=== PATIENT | female | born 1945 | race Caucasian/White ===

== ENCOUNTER 2020-12-02 09:54 | Inpatient (IN) | payer MEDICARE, SELFPAY ==
[2020-12-02] VITALS (8 sets, daily range): BP systolic 124–162; BP diastolic 47–83; PULSE 70–81; RESP 16–20; TEMP 36–36.1; O2SAT 83–97; BMI 19.8
--- NOTE | ~2020-12-02 | XR_ITS ---
EXAMINATION: XR hip LT 2V w AP pelvis EXAM DATE: 12/02/2020 10:14 INDICATION: fall with shortening and rotation. TECHNIQUE: Left hip frontal, crosstable lateral projections for interpretation. Frontal projection pe lvis. There is no prior study for comparison. FINDINGS: There is acute closed posttraumatic left hip intertrochanteric fracture with medial angulat ion and probably mild comminution. No hip dislocation. Scattered arteriosclerotic disease. IMPRESSION: Left hip acute intertrochanteric fracture. Reviewed, dictated and finalized at location A.
--- NOTE | ~2020-12-02 | CT_ITS ---
EXAMINATION: CT brain wo con EXAM DATE: 12/02/2020 11:05 INDICATION: head injury, fall . TECHNIQUE: Spiral CT of the head was performed without contrast. Axial, coronal and sagittal images were reviewed. The dose-length product (DLP) for this examination was 605.33 mGy-cm. The exposure w as tailored according to patient size, and iterative reconstruction (ASIR) was used as additional dos e reduction technique. Comparison is made to prior examination from 02/20/2011. FINDINGS: There is no acute intraparenchymal hemorrhage. No evidence of intraparenchymal brain mass lesion. No evidence of acute infarction. Please note that initial head CT has limited sensitivity f or small or acute infarctions. Punctate old right thalamic lacunar infarction. There is mild to mod erate periventricular and subcortical hypodensity, nonspecific but probably related to small vessel i schemic disease. There is moderate prominence of the sulci and ventricles related to cerebral atrop hy. There is intracranial carotid arteriosclerosis. There are no extra-axial collections. There i s no mass effect or midline shift. The orbits are unremarkable. Soft tissue is unremarkable. The v isualized sinuses and mastoid air cells are well aerated. IMPRESSION: 1. No acute intracranial findings. 2. Chronic age related findings. 3. Punctate old left thalamic lacunar infarction. Reviewed, dictated and finalized at location A.
--- NOTE | ~2020-12-02 | XR_ITS ---
EXAMINATION: XR chest 2V DATE: 12/02/2020 11:09 INDICATION: Fall. Smoker. TECHNIQUE: Frontal and lateral views of the chest were obtained. COMPARISON: Chest single view 03/04/2019, chest CT 07/23/2018 FINDINGS: The lungs are hyperexpanded with lucencies, consistent with emphysema. No pleural effusion or pneumothorax. The heart size is normal. Again seen is a fusiform aneurysm of descending thoracic a salvatore measuring approximately 4.5 cm. IMPRESSION: 1. Emphysema. 2. Fusiform aneurysm of descending thoracic aorta measuring approximately 4.5 cm. Reviewed, dictated and finalized at location A. IMPRESSION: 1. Emphysema. 2. Fusiform aneurysm of descending thoracic aorta measuring approximately 4.5 c m.
--- NOTE | ~2020-12-02 | XR_ITS ---
XR surgery orthopedic DATE: 12/03/2020 10:12 INDICATION: ORIF left intertrochanteric hip fracture TECHNIQUE: 139.2 seconds fluoroscopy time 24.88 mGy COMPARISON: 12/02/2020 pelvis and left hip FINDINGS: A gamma nail extends through the greater trochanter into the proximal femoral shaft, with i nterlocking compression screw extending through the intertrochanteric area and femoral neck into the femoral head, providing near-anatomic position and alignment at the interventricular fracture of the left hip, with reduction of preoperative varus angulation. IMPRESSION: ORIF left intertrochanteric hip fracture by gamma nail and compression screw Reviewed, dictated and finalized at Location A. Reviewed, dictated and finalized at location A. IMPRESSION: ORIF left intertrochanteric hip fracture by gamma nail and compress ion screw
--- NOTE | 2020-12-02 10:26 | ED.LOWEXIN ---
HPI - Extremity Injury (Lower) General Chief Complaint: Extremity Injury, Lower Stated Complaint: fall - Left hip injury Time Seen by Provider: 12/02/20 10:11 Source: patient Mode of arrival: EMS Limitations: no limitations History of Present Illness HPI Narrative: This is a 75 year old female that presents to the ER after a ground level fall today via EMS. Reports she was walking out of her room and lost her balance. Reports she fell onto her left hip. She thinks she might have hit her head. She denies any loss of consciousness. Denies prodromal symptoms, other injuries, chest pain, shortness of breath, vision changes, vomiting, numbness or weakness. Related Data Home Medications Medication Instructions Recorded Confirmed aspirin 81 mg tablet,delayed 81 mg PO DAILY 02/27/19 03/28/20 release tiotropium bromide [Spiriva with 1 cap INHALATION DAILY 12/02/20 HandiHaler] Allergies Allergy/AdvReac Type Severity Reaction Status Date / Time No Known Allergies Allergy Verified 12/02/20 10:01 Review of Systems Review of Systems: CONSTITUTIONAL: Denies fever EYES: Denies visual changes CARDIOVASCULAR: Denies chest pain RESPIRATORY: Denies dyspnea. GASTROINTESTINAL: Denies vomiting MUSCULOSKELETAL: Reports joint pain, and myalgia. NEUROLOGIC: Denies headache, numbness, or weakness. All systems reviewed & are unremarkable except as noted in HPI and below PMFSH Past Medical History Medical History Abdominal aortic aneurysm Bilateral cataracts CAD (coronary artery disease) 3 cardiac stents COPD (chronic obstructive pulmonary disease) Hyperinflation on chest x-ray. No PFTs to confirm Glaucoma History of stroke 2013 Hyperlipidemia Hypertension Thoracic aortic aneurysm Being monitored every 4 months by ultrasound. She believes is 4 mm TIA (transient ischemic attack) Tobacco use Currently smokes a pack cigarettes a day. No interest in smoking cessation Vitamin D deficiency Surgical History Surgical History H/O section 1970's, 1979's History of coronary artery stent placement (~2013) Three stents Family History Family History Mother Family history of heart disease in male family member before age 55 Acute myocardial infarction Family history of obesity Family history of arthritis Family history of cardiovascular disease Hypertension Diabetes mellitus Sibling Family history of malignant neoplasm Family history of obesity Family history of arthritis due to sepsis Father Family history of malignant neoplasm Family history of arthritis Sibling Cerebrovascular accident Family history of arthritis Family history of cardiovascular disease Sibling Family history of arthritis Sibling Family history of malignant neoplasm of breast Social History Social History Social History: The patient lives with her son and [id number]. She gave this 6 children only 5 her living. Patient is still smoking a pack cigarettes a day. She denies any alcohol or illicit drugs. 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
--- NOTE | 2020-12-02 10:31 | ECG_ITS ---
Measurements Intervals [place] Rate: 64 P: 64 ME: 173 QRS: 6 QRSD: 90 T: 41 QT: 418 QTc: 432 Interpretive Statements SINUS RHYTHM MINIMAL Q WAVES- HIGH LATERAL LEADS BORDERLINE ST ABNORMALITY- ANTEROLAT/INF LEADS BASELINE ARTIFACT- I, II, AVR, AVL, AVF, V1, V3-V6 BORDERLINE ECG Electronically Signed On 12-02-2020 12:05:56 CDT by Leo Correia D.O.
[2020-12-02] MEDS: ONDANSETRON INJ 4 MG/2 ML VIAL IV PUSH (10:45)
[2020-12-02] MEDS: MORPHINE SULFATE (*CRX) 4 MG/ML INJ IV PUSH (10:46)
[2020-12-02 11:24] LABS: Basophils Absolute Auto 0.1 K/mm3 (0.0-0.1); Basophils Percent Auto 0.5 % (0.2-1.2); Eosinophils Percent Auto 0.2 % (0-4.4); Hematocrit 43.8 % (37.0-47.0); Hemoglobin 14.8 g/dL (12.0-15.0); Immature Granulocyte Absolute 0.12 K/mm3 (0.00-0.031); Immature Granulocyte Percent A 0.6 % (0-0.5); Lymphocytes Absolute Auto 1.07 K/mm3 (0.9-3.2); Lymphocytes Percent Auto 5.7 % (18.3-44.2); Mean Corpuscular HGB Conc 33.8 g/dl (32-36); Mean Corpuscular Hemoglobin 28.5 pg (26-34); Mean Corpuscular Volume 84.2 fl (80-100); Mean Platelet Volume 9.6 fl (7.4-10.4); Monocytes Absolute Auto 0.6 K/mm3 (0.1-0.6); Monocytes Percent Auto 3.4 % (2.6-8.5); Neutrophils Absolute Auto 16.7 K/mm3 (1.3-6.7); Neutrophils Percent Auto 89.6 % (45.5-73.1); Platelet Count Result 311 k/mm3 (150-375); Red Cell Distribution Width 14.9 % (11.5-14.5); White Blood Count 18.7 K/mm3 (4.5-10.0)
[2020-12-02 11:35] LABS: INR 0.9; Prothrombin Time 12.3 Seconds (11.1-14.7)
[2020-12-02 11:36] LABS: Alanine Aminotransferase 17 U/L (4-35); Albumin Level 3.7 g/dL (3.5-5.1); Alkaline Phosphatase 69 U/L (38-126); Anion Gap 9 mmol/L (8-16); Aspartate Amino Transferase 28 U/L (14-36); Bilirubin,Total 0.4 mg/dL (0.2-1.3); Blood Urea Nitrogen 15 mg/dL (7-17); Calcium 10.5 mg/dL (8.4-10.2); Carbon Dioxide 24 mmol/L (22-30); Chloride 89 mmol/L (98-107); Estimated CRCL calculation 40 ml/min; Estimated Glomerular Filt Rate > 60; Glucose 120 mg/dL (65-110); Potassium 3.2 mmol/L (3.4-5.0); Sodium 122 mmol/L (137-145)
[2020-12-02 11:37] LABS: Partial Thromboplastin Time 24.9 SECONDS (22.3-36.8)
[2020-12-02] MEDS: SODIUM CHLORIDE 0.9% IV 500 ML 999 ML IV CONT (12:05)
[2020-12-02 12:25] LABS: Add Urine Microscopic? YES; Appearance Urine Clear (Clear); Bilirubin Urine Negative (Negative); Blood Urine Negative (Negative); Color Urine Yellow (Yellow); Glucose Urine UA Negative (Negative); Ketones Urine Negative (Negative); Leukocyte Esterase Ur Negative LEU/UL (Negative); Nitrate Urine Negative (Negative); Protein Urine 1+ mg/dL (Negative); RBC Urine 0-2 /hpf (0-2); Specific Grav Ur 1.011 (1.001-1.035); Urobilinogen Urine Negative mg/dL (<2.0); WBC Urine 0-3 /hpf
--- NOTE | 2020-12-02 12:25 | PM.CNOR ---
Assessment and Plan Additional Plan 75 YO FEMALE WITH HISTORY OF FALL TO LEFT HIP NOW WITH DISPLACED LEFT INTERTROCHANTERIC FEMUR FRACTURE. HISTORY, EXAM AND RADIOGRAPHS REVIEWED WITH THE PATIENT. REFERRING PHYSICIAN RECORDS AND IMAGES REVIEWED. CONDITION, NATURE, ETIOLOGY AND COURSE OF NATURAL HISTORY REVIEWED. CONSERVATIVE AND OPERATIVE TREATMENT OPTIONS REVIEWED WELL THE RISKS AND BENEFITS OF EACH. XRAYS SHOW LEFT INTERTROCHANTERIC FEMUR FRACTURE WITH DISPLACEMENT. RECOMMEND INSERTION OF GAMMA KATHLEEN LEFT FEMUR. DISCUSSED NONOPERATIVE AND OPERATIVE TREATMENT OPTIONS WITH THE PATIENT. THE PATIENT'S QUESTIONS WERE ANSWERED. THE PATIENT DESIRES OPERATIVE TREATMENT. RISKS OF SURGERY INCLUDING BUT NOT LIMITED TO NEUROVASCULAR DAMAGE, WOUND COMPLICATIONS, BLOOD CLOT, PULMONARY EMBOLUS, STROKE, VT, ANESTHETIC RISKS UP TO AND INCLUDING WERE REVIEWED. CONTINUED PAIN AND POSSIBLE DYSFUNCTION WERE EXPLAINED. NO GUARANTEES WERE OFFERED. THE PATIENT UNDERSTANDS AND WISHES TO PROCEED. History of Present Illness [facility] Consult date: 12/02/20 Consult reason: fracture Chief complaint: Left hip intertrochanteric fracture Narrative: ADELA IS A 75 YO FEMALE WITH HISTORY OF A FSALL TO HER LEFT HIP THIS AM. SHE BROUGHT TO THE ED AND DIAGNOSED WITH A LEFT INTERTROCHANTERIC FEMUR FRACTURE. SHE HAS A HISTORY OF COPD AND HYPERTENSION. SHE IS A COMMUNITY AMBULATOR AND VERY INDEPENDENT Review of Systems Review of Systems: All systems reviewed & are unremarkable except as noted in HPI and below Musculoskeletal: Musculoskeletal: Reports as per HPI Neurologic: Reports system reviewed and no additional complaints, except as documented PMF Past Medical History Medical History Abdominal aortic aneurysm Bilateral cataracts CAD (coronary artery disease) 3 cardiac stents COPD (chronic obstructive pulmonary disease) Hyperinflation on chest x-ray. No PFTs to confirm Glaucoma History of stroke 2013 Hyperlipidemia Hypertension Thoracic aortic aneurysm Being monitored every 4 months by ultrasound. She believes is 4 mm TIA (transient ischemic attack) Tobacco use Currently smokes a pack cigarettes a day. No interest in smoking cessation Vitamin D deficiency Surgical History Surgical History H/O section 1970's, 1979's History of coronary artery stent placement (~2013) Three stents Family History Family History Mother Family history of heart disease in male family member before age 55 Acute myocardial infarction Family history of obesity Family history of arthritis Family history of cardiovascular disease Hypertension Diabetes mellitus Sibling Family history of malignant neoplasm Family history of obesity Family history of arthritis due to sepsis Father Family history of malignant neoplasm Family history of arthritis Sibling Cerebrovascular accident Family history of arthritis Family history of cardiovascular disease Sibling Family history of arthritis Sibling Family history of malignant neoplasm of breast Social History Social History Social History: The patient lives with her son and [id number]. She gave this 6 children only 5 her living. Patient is still smoking a pack cigarettes a day. She denies any alcohol or illicit drugs. Smoking packs per day: 0.75 Smoking cigarettes per day: 15.0 Years smoked: 56 Smoking pack-years: 42.00 Smoking status: Current every day smoker Tobacco type: cigarettes Additional smoking assessment comments: Currently smoking Alcohol intake: former Drinks per week: 20 Substance use: current Substance use type: marijuana Other substance usage details: smoke marijuana one hit pipe TID for anxiety; used for 50 years Last
[2020-12-02] MEDS: SODIUM CHLORIDE 0.9% IV 1,000 ML 125 ML IV CONT ×2 (13:14→20:17)
--- NOTE | 2020-12-02 13:19 | PM.IMHP ---
H&P: HPI History of Present Illness Date/Time: 12/02/20 13:19 this is a 75-year-old female patient who resides with her family. The patient does night typically use any walking aids to assist her in ambulation. The patient stated she did not feel dizzy but she just lost her footing when she was walking out of her room today and fell on the floor. She stated she believes she did hit her head and was complaining of left hip pain. The patient had no complaints of any chest pain or dizziness today. CT scan was read as the following 1. No acute intracranial findings. 2. Chronic age related findings. 3. Punctate old left thalamic lacunar infarction. Chest x-ray was read as emphysema. Fusiform aneurysm of descending thoracic aortic measuring approximately 4.5 cm. WBC is 18.7. Hip and pelvis x-ray was read as the following. MPRESSION: Left hip acute intertrochanteric fracture. The patient was given morphine, Zofran, Tylenol, and potassium. Her potassium was 3.2 and sodium 122. Ortho has seen the patient. The patient has been coughing as well but denies any fever. The patient stated this is common for her with her COPD. The patient is not oxygen dependent. The patient denies any shortness of breath. The patient also has a history of coronary artery disease. The patient is being admitted to inpatient services on the date of service of 12/02/2020. Chief Complaint: left hip pain Review of Systems Review of Systems: All systems reviewed & are unremarkable except as noted in HPI and below Constitutional: Constitutional: Reports as per HPI and Reports no additional constitutional complaints Eyes: Eyes: Reports as per HPI and Reports no additional eye complaints ENT: Reports system reviewed and no additional complaints, except as documented and Reports Normal hearing present Cardiovascular: Cardiovascular: Reports no additional cardiovascular complaints Respiratory: Respiratory: Reports no additional respiratory complaints and Reports no additional respiratory complaints Gastrointestinal: Gastrointestinal: Reports as per HPI and Reports no additional gastrointestinal complaints Musculoskeletal: Musculoskeletal: Reports no additional musculoskeletal complaints Integumentary/Breasts: Skin/Breast: Reports system reviewed and no additional complaints, except as docu and Reports as per HPI Neurologic: Reports system reviewed and no additional complaints, except as documented, Reports as per HPI and Reports Normal hearing present Psychiatric: Psychiatric: Reports no additional psychiatric complaints and Reports as per HPI Endocrine: Endocrine: Reports no additional endocrine complaints Hematologic/Lymphatic: Hematologic/Lymphatic: Reports no additional hematologic/lymphatic complaints Allergic/Immunologic: Allergic/Immunologic: Reports no additional allergic/immunologic complaints [facility] Past Medical History Medical History (Updated 12/02/20 @ 13:43 by Kathleen Trimble NP) Abdominal aortic aneurysm Being monitored outpatient. Bilateral cataracts CAD (coronary artery disease) 3 cardiac stents COPD (chronic obstructive pulmonary disease) Hyperinflation on chest x-ray. No PFTs to confirm Glaucoma History of stroke 2012 Hyperlipidemia Hypertension Thoracic aortic aneurysm Being monitored every 4 months by ultrasound. She believes is 4 mm TIA (transient ischemic attack) Tobacco use Currently smokes a pack cigarettes a day. No interest in smoking cessation Vitamin D deficiency Surgical History Surgical History H/O section 1970's, 1979's History of coronary artery stent placement (~2013) Three stents Family History Family History Mother Family history of heart disease in male family member before age 55 Acute myocardial infarction Family history of obesity Family history of arthritis Family
--- NOTE | 2020-12-02 14:35 | ADMGEN ---
This patient, Crista Mccloud, was admitted to Medical Room 254-01. Patient/family oriented to hospital policies and general routines including ID bracelet, bed and alarms, visiting hours, pain management, procedures, bathroom and other care routines, personal items, smoking policy, room service/diet, and visiting hours. Information on how to activate the Rapid Response Team has been discussed. Patient/Family are encouraged to report perceived risks to care and to ask questions if they do not understand what they are told or what they should do.
[2020-12-02] MEDS: lisinopriL 20 MG TABLET 40 MG BY MOUTH (17:00)
[2020-12-02] MEDS: ASPIRIN 81 MG ENTERIC TABLET PO (17:01)
[2020-12-02] MEDS: MORPHINE SULFATE (*CRX) 2 MG/ML INJ IV PUSH ×2 (17:10→22:01)
[2020-12-02 17:59] LABS: Sodium Urine Random 61 meq/L
[2020-12-02] MEDS: METOPROLOL TARTRATE 50 MG TAB PO (20:22)
[2020-12-02 20:37] LABS: Anion Gap 6 mmol/L (8-16); Blood Urea Nitrogen 15 mg/dL (7-17); Calcium 9.9 mg/dL (8.4-10.2); Carbon Dioxide 25 mmol/L (22-30); Chloride 92 mmol/L (98-107); Estimated CRCL calculation 40 ml/min; Estimated Glomerular Filt Rate > 60; Glucose 109 mg/dL (65-110); Potassium 3.7 mmol/L (3.4-5.0); Sodium 123 mmol/L (137-145)
[2020-12-02] MEDS: ATORVASTATIN 20 MG TABLET BY MOUTH (21:32)
[2020-12-03] VITALS (15 sets, daily range): BP systolic 100–152; BP diastolic 43–61; PULSE 64–78; RESP 10–22; TEMP 35.7–36.6; O2SAT 72–100
[2020-12-03] MEDS: SODIUM CHLORIDE 0.9% IV 1,000 ML 125 ML IV CONT (03:56)
[2020-12-03 06:02] LABS: Basophils Percent Auto 0.4 % (0.2-1.2); Eosinophils Percent Auto 0.2 % (0-4.4); Hematocrit 35.6 % (37.0-47.0); Hemoglobin 11.6 g/dL (12.0-15.0); Immature Granulocyte Absolute 0.04 K/mm3 (0.00-0.031); Immature Granulocyte Percent A 0.4 % (0-0.5); Lymphocytes Absolute Auto 1.38 K/mm3 (0.9-3.2); Lymphocytes Percent Auto 15.2 % (18.3-44.2); Mean Corpuscular HGB Conc 32.6 g/dl (32-36); Mean Corpuscular Hemoglobin 27.9 pg (26-34); Mean Corpuscular Volume 85.6 fl (80-100); Mean Platelet Volume 10.2 fl (7.4-10.4); Monocytes Absolute Auto 0.5 K/mm3 (0.1-0.6); Monocytes Percent Auto 5.5 % (2.6-8.5); Neutrophils Absolute Auto 7.1 K/mm3 (1.3-6.7); Neutrophils Percent Auto 78.3 % (45.5-73.1); Platelet Count Result 219 k/mm3 (150-375); Red Blood Count 4.16 M/mm3 (4.2-5.4); White Blood Count 9.1 K/mm3 (4.5-10.0)
[2020-12-03 06:11] LABS: Alanine Aminotransferase 14 U/L (4-35); Albumin Level 2.9 g/dL (3.5-5.1); Alkaline Phosphatase 53 U/L (38-126); Anion Gap 6 mmol/L (8-16); Aspartate Amino Transferase 22 U/L (14-36); Bilirubin,Total 0.5 mg/dL (0.2-1.3); Blood Urea Nitrogen 15 mg/dL (7-17); Calcium 9.5 mg/dL (8.4-10.2); Carbon Dioxide 22 mmol/L (22-30); Chloride 100 mmol/L (98-107); Estimated CRCL calculation 46 ml/min; Estimated Glomerular Filt Rate > 60; Glucose 86 mg/dL (65-110); Lactic Acid Reflex 0.7 mmol/L (0.7-2.1); Potassium 3.5 mmol/L (3.4-5.0); Sodium 128 mmol/L (137-145)
--- NOTE | 2020-12-03 07:45 | WPDANESEPPF ---
Anes - Initial Pre Proc Eval Procedure: Operation Date: 12/03/20 08:00 Proposed Procedures p Left Hip Gamma Nail - Dewey Grayson MD Date/Time: 12/03/20 07:45 Surgeon: Chester Mckeon MD Pre Op Diagnosis: Left hip intertrochanteric fracture Patient Data Age: 75 Gender: F Height: 1.55 m Weight: 47.7 kg Last Vital Signs Temp 35.8 C L 12/03/20 04:16 Pulse 64 12/03/20 04:16 Resp 20 12/03/20 04:16 BP 110/50 L 12/03/20 04:16 Pulse Ox 93 12/03/20 06:07 Allergies Allergy/AdvReac Type Severity Reaction Status Date / Time No Known Allergies Allergy Verified 12/02/20 14:50 Home Medications Medication Instructions Recorded Confirmed Type aspirin 81 mg tablet,delayed 81 mg PO DAILY 02/27/19 12/02/20 History release lisinopril 40 mg tablet See Rx Instructions .ROUTE 06/01/20 12/02/20 Rx .COMPLEX #90 tablet metoprolol tartrate 50 mg tablet 50 mg PO BID #180 tablet 09/06/20 12/02/20 Rx chlorthalidone 25 mg tablet See Rx Instructions .ROUTE 09/29/20 12/02/20 Rx .COMPLEX #90 tablet atorvastatin 20 mg tablet See Rx Instructions .ROUTE 10/18/20 12/02/20 Rx .COMPLEX #90 tablet clopidogrel 75 mg tablet See Rx Instructions .ROUTE 10/18/20 12/02/20 Rx .COMPLEX #90 tablet felodipine 10 mg tablet,extended See Rx Instructions .ROUTE 10/18/20 12/02/20 Rx release 24 hr .COMPLEX #90 tablet tiotropium bromide [Spiriva with 1 cap INHALATION DAILY 12/02/20 12/02/20 History HandiHaler] Laboratory Tests 12/02/20 12/02/20 12/02/20 11:13 11:13 11:13 WBC 18.7 K/mm3 H K/mm3 (4.5-10.0) RBC 5.20 M/mm3 M/mm3 (4.2-5.4) Hgb 14.8 g/dL g/dL (12.0-15.0) Hct 43.8 % % (37.0-47.0) MCV 84.2 fl fl (80-100) MCH 28.5 pg pg (26-34) MCHC 33.8 g/dl g/dl (32-36) RDW 14.9 % H % (11.5-14.5) Plt Count 311 k/mm3 k/mm3 (150-375) MPV 9.6 fl fl (7.4-10.4) Immature Gran % (Auto) 0.6 % H % (0-0.5) Neut % (Auto) 89.6 % H % (45.5-73.1) Lymph % (Auto) 5.7 % L % (18.3-44.2) [place] % (Auto) 3.4 % % (2.6-8.5) Eos % (Auto) 0.2 % % (0-4.4) Baso % (Auto) 0.5 % % (0.2-1.2) Lymph # (Auto) 1.07 K/mm3 K/mm3 (0.9-3.2) Noble # (Auto) 0.6 K/mm3 K/mm3 (0.1-0.6) Eos # (Auto) 0.0 K/mm3 K/mm3 (0-0.3) Baso # (Auto) 0.1 K/mm3 K/mm3 (0.0-0.1) Abs Immat Gran (auto) 0.12 K/mm3 H K/mm3 (0.00-0.031) Absolute Neuts (auto) 16.7 K/mm3 H K/mm3 (1.3-6.7) Absolute Nucleated RBC 0.0 K/mm3 K/mm3 (0.0-0.012) Nucleated RBC % 0.0 % % (0.0-0.2) PT 12.3 Seconds Seconds (11.1-14.7) INR 0.9 APTT 24.9 SECONDS SECONDS (22.3-36.8) Sodium 122 mmol/L L mmol/L (137-145) Potassium 3.2 mmol/L L mmol/L (3.4-5.0) Chloride 89 mmol/L L mmol/L (98-107) Carbon Dioxide 24 mmol/L mmol/L (22-30) Anion Gap 9 mmol/L mmol/L (8-16) BUN 15 mg/dL D mg/dL (7-17) Creatinine 0.80 mg/dL mg/dL (0.7-1.0) Estim Creat Clear Calc 40 ml/min ml/min Estimated GFR > 60 (59 - ) Glucose 120 mg/dL H mg/dL (65-110) Lactic Acid Calcium 10.5 mg/dL H mg/dL (8.4-10.2) Magnesium Total Bilirubin 0.4 mg/dL mg/dL (0.2-1.3) AST 28 U/L U/L (14-36) ALT 17 U/L U/L (4-35) Alkaline Phosphatase 69 U/L U/L (38-126) Total Protein 6.0 g/dL L g/dL (6.3-8.2) Albumin 3.7 g/dL g/dL (3.5-5.1) TSH (Reflex) Urine Color Urine Appearance Urine pH Ur Specific [place] Urine Protein Urine Glucose (UA) Urine Ketones Ur Blood (Man) Urine Nitrate Urine Bilirubin
--- NOTE | 2020-12-03 07:52 | PC.NURSE ---
To OR per bed, IV intact. Report given to Rosanne PÉREZ.
[2020-12-03] MEDS: ceFAZolin 2 GM/D5W 50 ML 2 GM/50 ML BAG IVPB ×2 (08:20→18:11)
--- NOTE | 2020-12-03 09:39 | P.OP_ITS ---
Procedure Note - Detailed Date of Procedure 12/03/20 Pre-op Diagnosis Left hip intertrochanteric fracture Post-op Diagnosis same Procedure Performed INSERTION GAMMA KATHLEEN LEFT HIP Surgeon Dewey Grayson MD Anesthesia general Description of Procedure THE PATIENT WAS TAKEN TO THE OPERATING ROOM AND PLACED ON A FRACTURE TABLE AFTER GIVEN GENERAL ANESTHESIA. THE LEFT LOWER EXTREMITY WAS PLACED IN A TRACTION BOOT AND USING SOME TRACTION AND INTERNAL ROTATION THE INNER TROCHANTERIC FRACTURE WAS REDUCED TO ANATOMIC POSITION. NEXT THE LEFT LOWER EXTREMITY WAS PREPPED AND DRAPED IN THE STERILE FASHION. AN INCISION WAS MADE PROXIMAL TO THE TIP OF THE GREATER TROCHANTER AND DISSECTION CONTINUED TILL THE TIP OF THE GREATER TROCHANTER WAS PALPATED. A GUIDE PIN WAS PLACED DOWN THE FEMORAL CANAL AND PAST THE FRACTURE SITE. THIS WAS CHECKED ON FLUOROSCOPY AND FOUND TO BE IN GOOD POSITION. AN INITIAL REAMER WAS USED TO REAM THE FEMORAL CANAL. A 10 BY 180 MM GAMMA KATHLEEN WAS INSERTED TILL THE CORRECT POSITION WAS IDENTIFIED ON XRAY. A GUIDE PIN WAS INSERTED THROUGH THE FEMORAL NECK AT 130 DEG ANGLE TILL IT RE ACHED THE TIP OF THE SUB CHONDRAL BONE SEEN ON XRAY. AFTER REAMING, LAG SCREW WAS INSERTED MEASURING 110 MM. XRAYS SHOWED IT TO BE IN GOOD POSITION. THE LAG SCREW WAS LOCKED PROXIMALLY WITH A LOCKING SCREW. NEXT A DISTAL LOCKING SCREW WAS PLACED ACROSS THE KATHLEEN AND WAS IN GOOD POSITION ON XRAY. THE TRACTION WAS RELEASED. THE WOUNDS WERE WASHED. THE DEEP FASCIA WAS REPAIRED WITH 0 VICRYL SUTURE, THE SUB CUTANEOUS LAYER WITH 2-0 VICRYL, AND THE SKIN WITH SAMANTA. THE WOUNDS WERE WASHED AND THEN STERILE DRESSING WAS APPLIED. PATIENT WAS EXTUBATED AND SENT TO RECOVERY ROOM. Estimated Blood Loss 100 Urine Output 300 Complications No immediate complications Condition stable Disposition PACU
[2020-12-03] MEDS: LACTATED RINGERS 1,000 ML 30 ML IV CONT (09:54)
[2020-12-03] MEDS: ONDANSETRON INJ 4 MG/2 ML VIAL IV PUSH ×2 (10:01→17:43)
[2020-12-03] MEDS: fentaNYL CITRATE INJ (*CRX) 100 MCG/2 ML VIAL 25 MCG IV PUSH ×2 (10:37→10:40)
--- NOTE | 2020-12-03 11:08 | PC.NURSE ---
Returned from OR per bed. Report received from ELISA Cortez.
[2020-12-03] MEDS: ACETAMINOPHEN 325 MG TABLET 650 MG PO (12:18)
[2020-12-03] MEDS: CLOPIDOGREL BISULFATE 75 MG TABLET BY MOUTH (12:19)
--- NOTE | 2020-12-03 13:59 | PM.IMPN ---
Progress Note: A&P Assessment and Plan (1) Closed intertrochanteric fracture of left hip: Qualifiers: Encounter type: initial encounter Fracture alignment: displaced Qualified Code(s): S72.142A - Displaced intertrochanteric fracture of left femur, initial encounter for closed fracture Code(s): S72.142A - Displaced intertrochanteric fracture of left femur, initial encounter for closed fracture Status: Acute Assessment and Plan: S/p gamma juan insertion Dr. Grayson following, recommendations appreciated Pain management Resume ASA and Plavix PT/OT (2) Acute hyponatremia: Code(s): E87.1 - Hypo-osmolality and hyponatremia Status: Acute Assessment and Plan: Improving Na+ 123-->128 Continue IVF Urine osmolarity pending Urine sodium 61 Hold diuretics for now (3) COPD (chronic obstructive pulmonary disease): Qualifiers: COPD type: unspecified COPD Qualified Code(s): J44.9 - Chronic obstructive pulmonary disease, unspecified Code(s): J44.9 - Chronic obstructive pulmonary disease, unspecified Status: Chronic Assessment and Plan: Continue inhalers (4) CAD (coronary artery disease): Qualifiers: Coronary Disease-Associated Artery/Lesion type: unspecified vessel or lesion type [place] vs. transplanted heart: [place] heart Associated angina: angina presence unspecified Qualified Code(s): I25.10 - Atherosclerotic heart disease of [place] coronary artery without angina pectoris Code(s): I25.10 - Atherosclerotic heart disease of [place] coronary artery without angina pectoris Status: Chronic Assessment and Plan: Hx 3 coronary stents in 2014 Will resume Plavix and aspirin Continue atorvastatin (5) Thoracic aortic aneurysm: Qualifiers: Presence of rupture: without rupture Qualified Code(s): I71.2 - Thoracic aortic aneurysm, without rupture Code(s): I71.2 - Thoracic aortic aneurysm, without rupture Status: Chronic Assessment and Plan: See the results of the CT scan She is monitored outpatient and there has not been any change in the size; 4.5 cm (6) Hypertension: Qualifiers: Hypertension type: essential hypertension Qualified Code(s): I10 - Essential (primary) hypertension Code(s): I10 - Essential (primary) hypertension Status: Chronic Assessment and Plan: Stable Holding diuretic Continue antihypertensives Monitor (7) Hyperlipidemia: Qualifiers: Hyperlipidemia type: unspecified Qualified Code(s): E78.5 - Hyperlipidemia, unspecified Code(s): E78.5 - Hyperlipidemia, unspecified Status: Chronic Assessment and Plan: Continue with patient's atorvastatin Subjective Date/time seen: 12/03/20 13:59 Interval history: pt seen and evaluated; pain is controlled; tolerating diet Review of Systems Review of Systems: All systems reviewed & are unremarkable except as noted in HPI and below Exam Const: General: no acute distress, alert and awake Orientation/consciousness: patient oriented x3 HENMT: Head: normocephalic and atraumatic Ears: hearing grossly normal bilaterally and external ears normal Face and sinus: face symmetric Mouth: Yes Normal oral and palatal mucosa present Eyes: Pupils: Equal, round and reactive pupils present EOM: EOMs intact bilaterally Neck: Neck: full ROM and trachea midline Thyroid: thyroid normal Chest: Chest palpation & inspection: normal inspection of the chest Resp: Effort & Inspection: normal respiratory effort Auscultation: clear to auscultation bilaterally Cardio: Rate: regular rate Rhythm: regular rhythm Heart sounds: S1 normal heart sound present and S2 normal heart sound present GI: Inspection: normal to inspection GI Palp: Yes Soft to palpation Percussion: Yes normal to percussion Auscultation: normal bowel sounds Back/Spine/Pelvis: Back: no CVA tenderness Skin: General s
[2020-12-03] MEDS: MAGNESIUM SULFATE 3GM/D5W100ML 3 GM/100 ML BAG IVPB (16:40)
[2020-12-03] MEDS: HYDROcodone/acetaminophen (*CRX) 7.5-325 MG TABLET 1 TAB PO ×2 (16:41→22:14)
[2020-12-03] MEDS: DOCUSATE SODIUM 100 MG CAPSULE PO (16:42)
[2020-12-03] MEDS: METOPROLOL TARTRATE 50 MG TAB PO (20:55)
[2020-12-03] MEDS: ATORVASTATIN 20 MG TABLET BY MOUTH (20:55)
[2020-12-03] MEDS: FAMOTIDINE 20 MG TABLET PO (20:55)
[2020-12-04] MEDS: ceFAZolin 2 GM/D5W 50 ML 2 GM/50 ML BAG IVPB ×2 (00:44→09:42)
[2020-12-04 01:00] VITALS: BP 93/45; PULSE 62; RESP 16; TEMP 36.6; O2SAT 100
[2020-12-04] MEDS: MORPHINE SULFATE (*CRX) 2 MG/ML INJ IV PUSH (01:06)
[2020-12-04 05:00] VITALS: BP 102/42; PULSE 64; RESP 16; TEMP 36.6; O2SAT 97
[2020-12-04 06:14] LABS: Basophils Absolute Auto 0.1 K/mm3 (0.0-0.1); Basophils Percent Auto 0.9 % (0.2-1.2); Eosinophils Percent Auto 0.5 % (0-4.4); Hematocrit 28.1 % (37.0-47.0); Hemoglobin 8.9 g/dL (12.0-15.0); Immature Granulocyte Absolute 0.03 K/mm3 (0.00-0.031); Immature Granulocyte Percent A 0.4 % (0-0.5); Lymphocytes Percent Auto 18.4 % (18.3-44.2); Mean Corpuscular HGB Conc 31.7 g/dl (32-36); Mean Corpuscular Hemoglobin 27.9 pg (26-34); Mean Corpuscular Volume 88.1 fl (80-100); Mean Platelet Volume 10.5 fl (7.4-10.4); Monocytes Absolute Auto 0.6 K/mm3 (0.1-0.6); Monocytes Percent Auto 7.2 % (2.6-8.5); Neutrophils Absolute Auto 5.9 K/mm3 (1.3-6.7); Neutrophils Percent Auto 72.6 % (45.5-73.1); Platelet Count Result 190 k/mm3 (150-375); Red Blood Count 3.19 M/mm3 (4.2-5.4); White Blood Count 8.2 K/mm3 (4.5-10.0)
[2020-12-04 06:27] LABS: Anion Gap 5 mmol/L (8-16); Blood Urea Nitrogen 18 mg/dL (7-17); Calcium 9.5 mg/dL (8.4-10.2); Carbon Dioxide 24 mmol/L (22-30); Chloride 98 mmol/L (98-107); Estimated CRCL calculation 33 ml/min; Estimated Glomerular Filt Rate 54; Glucose 103 mg/dL (65-110); Magnesium 1.9 mg/dL (1.6-2.3); Potassium 3.4 mmol/L (3.4-5.0); Sodium 127 mmol/L (137-145)
[2020-12-04 08:00] VITALS: O2SAT 91
[2020-12-04] MEDS: DOCUSATE SODIUM 100 MG CAPSULE PO ×2 (08:31→18:46)
[2020-12-04] MEDS: FAMOTIDINE 20 MG TABLET PO ×2 (08:31→20:50)
[2020-12-04] MEDS: ASPIRIN 81 MG ENTERIC TABLET PO (08:31)
[2020-12-04] MEDS: CLOPIDOGREL BISULFATE 75 MG TABLET BY MOUTH (08:31)
[2020-12-04] MEDS: FONDAPARINUX SODIUM 2.5 MG/0.5 ML SYRINGE SUB-Q (08:31)
--- NOTE | 2020-12-04 08:31 | PM.IMPN ---
Progress Note: A&P Assessment and Plan (1) Closed intertrochanteric fracture of left hip: Qualifiers: Encounter type: initial encounter Fracture alignment: displaced Qualified Code(s): S72.142A - Displaced intertrochanteric fracture of left femur, initial encounter for closed fracture Code(s): S72.142A - Displaced intertrochanteric fracture of left femur, initial encounter for closed fracture Status: Acute Assessment and Plan: S/p gamma juan insertion Dr. Grayson following, recommendations appreciated Pain management Resume ASA and Plavix PT/OT (2) Acute hyponatremia: Code(s): E87.1 - Hypo-osmolality and hyponatremia Status: Acute Assessment and Plan: Improving Na+ 123-->128-->127 Continue IVF Urine osmolarity pending Urine sodium 61 Hold diuretics for now (3) COPD (chronic obstructive pulmonary disease): Qualifiers: COPD type: unspecified COPD Qualified Code(s): J44.9 - Chronic obstructive pulmonary disease, unspecified Code(s): J44.9 - Chronic obstructive pulmonary disease, unspecified Status: Chronic Assessment and Plan: Continue inhalers (4) CAD (coronary artery disease): Qualifiers: Coronary Disease-Associated Artery/Lesion type: unspecified vessel or lesion type [place] vs. transplanted heart: [place] heart Associated angina: angina presence unspecified Qualified Code(s): I25.10 - Atherosclerotic heart disease of [place] coronary artery without angina pectoris Code(s): I25.10 - Atherosclerotic heart disease of [place] coronary artery without angina pectoris Status: Chronic Assessment and Plan: Hx 3 coronary stents in 2014 Continue Plavix and aspirin Continue atorvastatin (5) Thoracic aortic aneurysm: Qualifiers: Presence of rupture: without rupture Qualified Code(s): I71.2 - Thoracic aortic aneurysm, without rupture Code(s): I71.2 - Thoracic aortic aneurysm, without rupture Status: Chronic Assessment and Plan: See the results of the CT scan She is monitored outpatient and there has not been any change in the size; 4.5 cm (6) Hypertension: Qualifiers: Hypertension type: essential hypertension Qualified Code(s): I10 - Essential (primary) hypertension Code(s): I10 - Essential (primary) hypertension Status: Chronic Assessment and Plan: Stable Holding diuretic Continue antihypertensives Monitor (7) Hyperlipidemia: Qualifiers: Hyperlipidemia type: unspecified Qualified Code(s): E78.5 - Hyperlipidemia, unspecified Code(s): E78.5 - Hyperlipidemia, unspecified Status: Chronic Assessment and Plan: Continue with patient's atorvastatin Subjective Date/time seen: 12/04/20 08:31 Interval history: pt seen and evaluated; up to side of bed; no acute events overnight Review of Systems Review of Systems: All systems reviewed & are unremarkable except as noted in HPI and below Exam Const: General: no acute distress, alert and awake Orientation/consciousness: patient oriented x3 HENMT: Head: normocephalic and atraumatic Ears: hearing grossly normal bilaterally and external ears normal Face and sinus: face symmetric Mouth: Yes Normal oral and palatal mucosa present Eyes: Pupils: Equal, round and reactive pupils present EOM: EOMs intact bilaterally Neck: Neck: full ROM and trachea midline Thyroid: thyroid normal Resp: Effort & Inspection: normal respiratory effort Auscultation: clear to auscultation bilaterally and diminished lung sounds Cardio: Rate: regular rate Heart sounds: S1 normal heart sound present and S2 normal heart sound present GI: Inspection: normal to inspection Auscultation: normal bowel sounds : General: Yes no CVA tenderness Back/Spine/Pelvis: Back: no CVA tenderness Skin: General skin exam: normal color Rashes: no rashes Neuro: General: patient oriented x3 and CN
[2020-12-04 08:34] VITALS: BP 108/42; PULSE 78; RESP 19; O2SAT 91
[2020-12-04] MEDS: ACETAMINOPHEN 325 MG TABLET 650 MG PO ×2 (08:38→18:53)
[2020-12-04 13:00] VITALS: BP 124/38; PULSE 97; RESP 14; TEMP 36.3; O2SAT 94
--- NOTE | 2020-12-04 14:57 | WPDANESPN ---
Anes - Prog Note Post-Op Date/Time: 12/04/20 14:57 Cardiovascular status: normal Respiratory status: normal Airway patency: baseline Mental status: baseline Post-Op hydration status: normal Vital Signs: Last Vital Signs Temp 97.9 F 12/04/20 05:00 Pulse 78 12/04/20 08:34 Resp 19 12/04/20 08:34 BP 108/42 L 12/04/20 08:34 Pulse Ox 91 12/04/20 08:34 Pain Score (VAS): 0 I/O: Intake & Output 12/03/20 12/04/20 12/04/20 23:59 07:59 15:59 Intake Total 640 250 50 Output Total 150 200 Balance 490 50 50 Laboratory Tests 12/04/20 05:24 12/04/20 05:24 12/04/20 12/04/20 05:24 05:24 WBC 8.2 RBC 3.19 L Hgb 8.9 L Hct 28.1 L MCV 88.1 MCH 27.9 MCHC 31.7 L RDW 15.0 H Plt Count 190 MPV 10.5 H Immature Gran % (Auto) 0.4 Neut % (Auto) 72.6 Lymph % (Auto) 18.4 [place] % (Auto) 7.2 Eos % (Auto) 0.5 Baso % (Auto) 0.9 Lymph # (Auto) 1.50 [place] # (Auto) 0.6 Eos # (Auto) 0.0 Baso # (Auto) 0.1 Abs Immat Gran (auto) 0.03 Absolute Neuts (auto) 5.9 Absolute Nucleated RBC 0.0 Nucleated RBC % 0.0 Sodium 127 L Potassium 3.4 Chloride 98 Carbon Dioxide 24 Anion Gap 5 L BUN 18 H Creatinine 1.00 Estim Creat Clear Calc 33 Estimated GFR 54 L Glucose 103 Calcium 9.5 Magnesium 1.9 Post-procedural complaints: none Patient Feedback: Patient satisfied with anesthetic care.
[2020-12-04] MEDS: ATORVASTATIN 20 MG TABLET BY MOUTH (20:50)
[2020-12-04 21:00] VITALS: BP 126/52; PULSE 106; RESP 16; TEMP 36.9; O2SAT 94
[2020-12-05] VITALS (11 sets, daily range): BP systolic 84–126; BP diastolic 47–74; PULSE 87–149; RESP 16–20; TEMP 36.1–36.6; O2SAT 92–99
--- NOTE | 2020-12-05 | ECHO_ITS ---
Patient Info Name: Crista Mccloud Age: 75 years : 1945 Gender: Female Ht: 61 in Wt: 105 lbs BSA: 1.43 m2 HR: 150 bpm BP: 97 / 61 mmHg Heart Rhythm: Atrial Fibrillation, Tachycardia Technical Quality: Good Exam Date: 12/05/2020 1:16 PM Exam Location: [facility] Patient Status: Inpatient Admit Date: 12/02/2020 Staff Ordering Physician: Malina Ponce Insole And Outsole Preparer: Khloe Morales RDCS Attending Provider: Chester Mckeon MD Referring Physician: Kris MARTINS; Exam Type: CA echo doppler color flow Study Info Indications - NEW AFIB WITH RVR Complete two-dimensional, color flow and Doppler transthoracic echocardiogram is performed. Summary 1. Complete two-dimensional, color flow and Doppler transthoracic echocardiogram is performed. 2. Left ventricular systolic function is hyperdynamic, estimated at >70%. 3. There is mildly increased left ventricular wall thickness. 4. There is mild to moderate aortic valve stenosis with a peak velocity of 255 cm/s, mean gradient of 15 mmHg, and aortic valve area of 1.4 cm2. 5. There is mild mitral valve regurgitation. 6. There is mild to moderate tricuspid valve regurgitation. 7. Moderate pulmonary hypertension, estimated pulmonary arterial systolic pressure is 58 mmHg. Left Ventricle Left ventricular chamber dimension is normal. Left ventricular systolic function is hyperdynamic, estimated at >70%. There is mildly increased left ventricular wall thickness. The left ventricular diastolic function is indeterminate. Right Ventricle Right ventricular chamber dimension is normal. Right ventricular systolic function is normal. Left Atria Left atrial chamber dimension is normal. Right Atria Right atrial chamber dimension is normal. Aortic Valve The aortic valve is probable trileaflet. There is mild to moderate aortic valve stenosis with a peak velocity of 255 cm/s, mean gradient of 15 mmHg, and aortic valve area of 1.4 cm2. There is trace aortic valve regurgitation. There is mild aortic valve calcification. Pulmonic Valve The pulmonic valve is not well visualized. There is trace pulmonic regurgitation. Mitral Valve The mitral valve has normal leaflets. There is mild mitral valve regurgitation. The mitral valve annulus is mildly calcified. Tricuspid Valve The tricuspid valve leaflets are normal. There is mild to moderate tricuspid valve regurgitation. Moderate pulmonary hypertension, estimated pulmonary arterial systolic pressure is 58 mmHg. Pericardium/Pleural The pericardium appears normal. There is trivial pericardial effusion. Inferior Vena Cava Normal inferior vena cava with <50% collapse upon inspiration consistent with elevated right atrial pressure, 10 mmHg. Aorta The aortic root size at the sinus of Valsalva is normal. Left Ventricular Outflow Tract Name Value Normal LVOT 2D LVOT Diameter 1.9 cm LVOT Doppler LVOT Peak Gradient 9 mmHg LVOT Mean Gradient 4 mmHg LVOT VTI 21 cm LVOT VTI/AV VTI Ratio
[2020-12-05 00:37] LABS: Osmolality, Urine 371 mOsm/kg (50-1200)
[2020-12-05] MEDS: HYDROcodone/acetaminophen (*CRX) 7.5-325 MG TABLET 1 TAB PO ×3 (05:15→16:28)
[2020-12-05 06:03] LABS: Hematocrit 25.4 % (37.0-47.0); Hemoglobin 8.3 g/dL (12.0-15.0); Mean Corpuscular HGB Conc 32.7 g/dl (32-36); Mean Corpuscular Hemoglobin 28.2 pg (26-34); Mean Corpuscular Volume 86.4 fl (80-100); Mean Platelet Volume 10.3 fl (7.4-10.4); Platelet Count Result 190 k/mm3 (150-375); Red Blood Count 2.94 M/mm3 (4.2-5.4); Red Cell Distribution Width 15.1 % (11.5-14.5); White Blood Count 9.4 K/mm3 (4.5-10.0)
[2020-12-05 06:12] LABS: Anion Gap 5 mmol/L (8-16); Blood Urea Nitrogen 19 mg/dL (7-17); Calcium 10.2 mg/dL (8.4-10.2); Carbon Dioxide 25 mmol/L (22-30); Chloride 94 mmol/L (98-107); Estimated CRCL calculation 36 ml/min; Estimated Glomerular Filt Rate > 60; Glucose 99 mg/dL (65-110); Potassium 3.1 mmol/L (3.4-5.0); Sodium 124 mmol/L (137-145)
[2020-12-05] MEDS: DOCUSATE SODIUM 100 MG CAPSULE PO ×2 (08:29→16:29)
[2020-12-05] MEDS: FAMOTIDINE 20 MG TABLET PO ×2 (08:29→20:29)
[2020-12-05] MEDS: ASPIRIN 81 MG ENTERIC TABLET PO (08:29)
[2020-12-05] MEDS: CLOPIDOGREL BISULFATE 75 MG TABLET BY MOUTH (08:29)
[2020-12-05] MEDS: FONDAPARINUX SODIUM 2.5 MG/0.5 ML SYRINGE SUB-Q (08:29)
--- NOTE | 2020-12-05 09:55 | ECG_ITS ---
Measurements Intervals [place] Rate: 150 P: VT: 0 QRS: 17 QRSD: 69 T: 163 QT: 196 QTc: 310 Interpretive Statements ATRIAL FIBRILLATION WITH RAPID VENTRICULAR RESPONSE EARLY PRECORDIAL R/S TRANSITION VOLTAGE CRITERIA FOR LVH ST-T WAVE ABNORMALITY IN DIFFUSE LEADS- CONSIDER ISCHEMIA BASELINE ARTIFACT- V4 ABNORMAL ECG Electronically Signed On 12-05-2020 10:31:31 CDT by Leo Correia D.O.
[2020-12-05 10:47] LABS: Troponin I 0.043 ng/mL (0.000-0.034)
--- NOTE | 2020-12-05 10:49 | PM.IMPN ---
Progress Note: A&P Assessment and Plan (1) Closed intertrochanteric fracture of left hip: Qualifiers: Encounter type: initial encounter Fracture alignment: displaced Qualified Code(s): S72.142A - Displaced intertrochanteric fracture of left femur, initial encounter for closed fracture Code(s): S72.142A - Displaced intertrochanteric fracture of left femur, initial encounter for closed fracture Status: Acute Assessment and Plan: S/p gamma juan insertion Dr. Grayson following, recommendations appreciated Pain management Resume ASA PT/OT (2) Acute hyponatremia: Code(s): E87.1 - Hypo-osmolality and hyponatremia Status: Acute Assessment and Plan: Improving Na+ 123-->128-->127 Continue IVF Urine osmolarity pending Urine sodium 61 Hold diuretics for now (3) COPD (chronic obstructive pulmonary disease): Qualifiers: COPD type: unspecified COPD Qualified Code(s): J44.9 - Chronic obstructive pulmonary disease, unspecified Code(s): J44.9 - Chronic obstructive pulmonary disease, unspecified Status: Chronic Assessment and Plan: Continue inhalers (4) CAD (coronary artery disease): Qualifiers: Coronary Disease-Associated Artery/Lesion type: unspecified vessel or lesion type [place] vs. transplanted heart: [place] heart Associated angina: angina presence unspecified Qualified Code(s): I25.10 - Atherosclerotic heart disease of [place] coronary artery without angina pectoris Code(s): I25.10 - Atherosclerotic heart disease of [place] coronary artery without angina pectoris Status: Chronic Assessment and Plan: Hx 3 coronary stents in 2014 Stop Plavix per cards Continue atorvastatin and ASA (5) Thoracic aortic aneurysm: Qualifiers: Presence of rupture: without rupture Qualified Code(s): I71.2 - Thoracic aortic aneurysm, without rupture Code(s): I71.2 - Thoracic aortic aneurysm, without rupture Status: Chronic Assessment and Plan: See the results of the CT scan She is monitored outpatient and there has not been any change in the size; 4.5 cm (6) Hypertension: Qualifiers: Hypertension type: essential hypertension Qualified Code(s): I10 - Essential (primary) hypertension Code(s): I10 - Essential (primary) hypertension Status: Chronic Assessment and Plan: Soft Holding diuretic and antihypertensives Monitor (7) Hyperlipidemia: Qualifiers: Hyperlipidemia type: unspecified Qualified Code(s): E78.5 - Hyperlipidemia, unspecified Code(s): E78.5 - Hyperlipidemia, unspecified Status: Chronic Assessment and Plan: Continue atorvastatin (8) Atrial fibrillation with RVR: Code(s): I48.91 - Unspecified atrial fibrillation Status: Acute Assessment and Plan: ECG with Afib RVR, HR 140s Diltiazem 5 mg x1 with no significant improvement, will give second dose Transfer to IMU [place] x3, now history of CT Consult to cariology consulted, recommendation appreciated, plan to imitate amiodarone gtt Plan to initiate Eliquis Check ECHO Tele monitoring Subjective Date/time seen: 12/05/20 10:49 Interval history: pt seen and evaluated; pt complained of some dizziness when getting out of bed; note with low blood pressure and elevated HR; denied any CP, palpations, SOB, N/V Review of Systems Review of Systems: All systems reviewed & are unremarkable except as noted in HPI and below Exam Const: General: no acute distress, alert and awake Orientation/consciousness: patient oriented x3 HENMT: Head: normocephalic and atraumatic Ears: hearing grossly normal bilaterally and external ears normal Face and sinus: face symmetric Mouth: Yes Normal oral and palatal mucosa present Eyes: Pupils: Equal, round and reactive pupils present EOM: EOMs intact bilaterally Neck: Neck: full ROM and trachea midline Thyroid: thyroid roxann
[2020-12-05] MEDS: dilTIAZem HCl INJ 25 MG/5 ML VIAL 5 MG IV PUSH ×2 (10:58→12:09)
--- NOTE | 2020-12-05 12:10 | PC.NURSE ---
Patient complained of indigestion this morning. PT and OT were working with the patient and the patient complained of some dizziness when sitting in a chair. At this time the OT took a blood pressure which revealed that the patient had a BP of 97/62. Patient has been noted to have a low BP recently. SALES ORDER COORDINATOR went to work with the patient after OT left when the patient began complaining of increased dizziness. Blood pressure was rechecked and the patient was noted to have a lower BP of 72/43 with a heart rate of 146. Malina Ponce NP was informed of the findings and requested the patient be placed on telemetry and a stat EKG be ordered. Once ordered the patient was placed on tele and found to be at 156 and fluctuating. This nurse under the orders of Malina Ponce NP ordered a STAT EKG, Troponins, placed on telemetry, cardiology consult and order for transfer to IMU. SBAR faxed at 1000, U in a rapid response at the time. Attempted to call for report at 1100 the room the patient was to be transferred to still occupied. IMU nurse called and stated the patient was being transferred to IMU 213 refaxed SBAR to IMU at 1217
--- NOTE | 2020-12-05 12:27 | PM.CNCAR ---
Assessment and Plan Additional Plan 75-year-old woman with: Acute onset of atrial fibrillation with RVR this morning only really symptomatic with lightheadedness. She was clearly in sinus rhythm upon admission to the hospital for her fall and hip fracture. I believe the best strategy at this time is to start amiodarone treatment in hopes of restoring sinus rhythm. She is being transferred to IMU intravenous amiodarone cannot be administered on this floor. The patient is now on triple therapy with aspirin clopidogrel and postop anticoagulation. Her stenting procedure was done about 7 years ago so I am going to stop her clopidogrel. We will follow her with you. Once she is back in sinus rhythm an echocardiogram should be obtained. Jose Kelly MD [facility] History of Present Illness History of Present Illness Consult date/time: 12/05/20 12:27 Consult reason: atrial fibrillation Reason For Visit: Left hip intertrochanteric fracture Narrative: This is a 75-year-old woman I see this afternoon at the request of the hospitalist for assistance with the management and evaluation of new onset atrial fibrillation. The patient is known to me with a history of coronary artery disease and previous PCI but has failed office follow-up for about 4 years. She entered the hospital here at [place] over the weekend after a fall at home sustaining a hip fracture. She underwent surgical nailing of this in the operating room on Saturday and the procedure was uneventful. She was in normal sinus rhythm by ECG upon arrival in the hospital and until today. She was up this morning working with physical therapy and suddenly felt unwell. She really did not become aware of the sense of tachycardia or palpitations but felt lightheaded. She was laid back in bed when this occurred and it was noticed on exam by the nurses that she was tachycardic. She was then placed on telemetry and she clearly had gone into atrial fib with RVR. A 12 lead ECG was done which demonstrates this she also has some additional ST segment changes than compared to when she was in sinus rhythm. She not having any sense of chest pain pressure or heaviness. A came in the room to see her after this some in for a consult and she does not appear to be in any distress of any kind. She has no prior history of atrial fibrillation. She does have a history of coronary artery disease she presented here in 2013 in August of that year with acute coronary syndrome. She underwent percutaneous revascularization with stenting of the right coronary artery and circumflex. At following that she had done well. She followed up with me in the office until fall after which she stopped coming back for follow-up. Despite her diagnosis of coronary disease and she has significant COPD she has continued to smoke cigarettes and does not have any intention to attempt to quit. In this setting I am seeing her in consultation. Her medical regimen at home includes aspirin, clopidogrel, atorvastatin, chlorthalidone, lisinopril, felodipine and metoprolol. In addition the orthopedic surgeon is treating her with Fondaparinux for postop anticoagulation. Review of Systems Constitutional: Constitutional: Reports no additional constitutional complaints Eyes: Eyes: Reports no additional eye complaints ENT: Reports system reviewed and no additional complaints, except as documented and Reports nasal congestion Cardiovascular: Cardiovascular: Reports no additional cardiovascular complaints Respiratory: Respiratory: Reports dyspnea on exertion Gastrointestinal: Gastrointestinal: Reports no additional gastrointestinal complaints Musculoskeletal: Musculoskeletal: Reports back pain Integumentary/Breasts: Skin/Breast: Reports system reviewed and no additional complaints, except as docu Neurologic: Reports system reviewed and no additional complaints, except as documented Psychiatric: Psychiatric: Reports no additional psychiatric c
--- NOTE | 2020-12-05 12:45 | PC.NURSE ---
This patient, Crista Mccloud, was received from Replaced by [facility] on 12/05/20 at 1245. Patient/family oriented to unit policies and routines.
--- NOTE | 2020-12-05 13:03 | PM.PNORT ---
Progress Note: A&P Assessment and Plan (1) Closed intertrochanteric fracture of left hip: Qualifiers: Encounter type: initial encounter Fracture alignment: displaced Qualified Code(s): S72.142A - Displaced intertrochanteric fracture of left femur, initial encounter for closed fracture Code(s): S72.142A - Displaced intertrochanteric fracture of left femur, initial encounter for closed fracture Status: Acute Assessment and Plan: POD #2: INSERTION GAMMA KATHLEEN LEFT HIP PT/OT with TTWB. Walker. HIGH FALL RISK. Continue Pain Control. Ice lateral hip. Monitor dressing. Change daily. DVT prophylaxis. SCDs. Incentive spirometry. Okay to DC Jamison if okay with medicine team. Dispo: SNF when medically stable. (2) Atrial fibrillation with RVR: Code(s): I48.91 - Unspecified atrial fibrillation Status: Acute Assessment and Plan: Transferred to IMU. Cardiology following. Subjective Subjective Date/Time Seen: 12/05/20 13:03 Post Op day: 2 Interval history: POD #2: INSERTION GAMMA KATHLEEN LEFT HIP Transferred to IMU today due to Afib with RVR. Now being followed by cardiology. No complaints of left hip pain. Wants jamison catheter removed. Review of Systems Constitutional: Constitutional: Denies fatigue, Denies fever(s) and Denies weakness Cardiovascular: Cardiovascular: Reports as per HPI Respiratory: Respiratory: Reports no additional respiratory complaints Gastrointestinal: Gastrointestinal: Reports no additional gastrointestinal complaints Genitourinary: Genitourinary: Reports no additional female genitourinary complaints Musculoskeletal: Musculoskeletal: Reports as per HPI Exam Const: General: comfortable and no acute distress Resp: Effort & Inspection: normal respiratory effort GI: Inspection: non-distended GI Palp: Yes Soft to palpation and No Tenderness to palpation present (GI) Urinary Catheter: Urinary Catheter: patent and draining and urine clear Skin: Other: Ecchymosis lateral hip Neuro: Cognition (Neuro): normal cognition Speech: normal speech Extrem: Left lower extremity: hip/thigh Details: tenderness Location: of the hip Location: laterally, swelling Location: of the hip (lateral ) and abnormal ROM (limited due to recent surgical intervention ); ROM abnormal, knee Details: normal to inspection and normal ROM; no tenderness and no swelling, lower leg (Negative Jesus's Sign ), ankle (+ankle dorsiflexion/plantarflexion) and foot (2+ pedal pulses. Sensation intact. Moves toes ) Psych: Mental Status: mental status grossly normal Thought content: Yes Normal thought content present Objective Data Vital Signs Vital Signs: Vital Signs - 24 hr 12/04/20 21:00 12/05/20 05:46 12/05/20 09:50 Temperature 36.9 C 36.1 C L Pulse Rate 106 H 92 137 H Respiratory Rate 16 16 Blood Pressure 126/52 L 126/49 L 84/52 L Pulse Oximetry 94 93 95 12/05/20 10:03 12/05/20 12:00 Temperature Pulse Rate 146 H 128 H Respiratory Rate Blood Pressure 97/61 L Pulse Oximetry 95 Intake/Output Intake/Output: Intake & Output 12/02/20 12/03/20 12/04/20 12/05/20 23:59 23:59 23:59 23:59 Intake Total 2100 1940 780 300 Output Total 250 975 400 500 Balance 1850 965 380 -200 Meds/Results Medications: Active Medications Generic Name Dose Route Start Last Admin Trade Name Freq PRN Reason Stop Dose Admin Acetaminophen 650 mg 12/03/20 10:55 12/04/20 18:53 Acetaminophen 325 Mg Tablet PO 650 mg Q6H PRN Administration Mild Pain (1-3) or Fever Hydrocodone Bitart/Acetaminophen 1 tab 12/03/20 10:55 12/05/20 08:30 Hydrocodone/Acetaminophen (*Crx) 7.5-325 Mg Tablet PO 1 tab Q3H PRN Administration Pain Rated 4-6 Albuterol 1 puff 12/03/20 06:48 Albuterol Sulfate (*Sp) Inhaler INHALATION Q4HR PRN Shortness Of Breath Aspirin 81 mg 12/02/20 15:50 12/05/20 08:29 Aspirin 81 Mg Enteric Tablet PO 81 mg DAILY ROSARIO
[2020-12-05] MEDS: AMIODARONE 150 MG/D5W 100 ML 150 MG/100 ML BAG 600 MG IV CONT (13:12)
[2020-12-05] MEDS: AMIODARONE 360 MG/D5W 200 ML 360 MG/200 ML BAG 33.33 MG IV CONT (13:30)
[2020-12-05 14:20] LABS: Troponin I 0.099 ng/mL (0.000-0.034)
--- NOTE | 2020-12-05 14:29 | PCPTNOTE ---
PT held this afternoon due to change in patient's medical status and transfer to IMU.
--- NOTE | 2020-12-05 14:30 | ECG_ITS ---
Measurements Intervals [place] Rate: 96 P: 43 AL: 144 QRS: 10 QRSD: 81 T: 42 QT: 317 QTc: 402 Interpretive Statements SINUS RHYTHM MINIMAL Q WAVES- ANTEROLAT/HIGH LAT LEADS BORDERLINE ST-T WAVE ABNORMALITY- ANTEROLAT/INF LEADS BASELINE ARTIFACT- V6 BORDERLINE ECG Electronically Signed On 12-05-2020 15:02:47 CDT by Leo Correia D.O.
[2020-12-05 17:01] LABS: Troponin I 0.271 ng/mL (0.000-0.034)
[2020-12-05] MEDS: AMIODARONE 360 MG/D5W 200 ML 360 MG/200 ML BAG 16.67 MG IV CONT (20:28)
[2020-12-05] MEDS: ATORVASTATIN 20 MG TABLET BY MOUTH (20:29)
[2020-12-06] VITALS (15 sets, daily range): BP systolic 95–164; BP diastolic 44–83; PULSE 75–112; RESP 18; TEMP 35.9–36.6; O2SAT 93–98
[2020-12-06] MEDS: HYDROcodone/acetaminophen (*CRX) 7.5-325 MG TABLET 1 TAB PO ×2 (00:07→08:26)
[2020-12-06 05:37] LABS: Hematocrit 24.5 % (37.0-47.0); Hemoglobin 8.1 g/dL (12.0-15.0); Mean Corpuscular HGB Conc 33.1 g/dl (32-36); Mean Corpuscular Hemoglobin 28.4 pg (26-34); Mean Platelet Volume 10.5 fl (7.4-10.4); Platelet Count Result 221 k/mm3 (150-375); Red Blood Count 2.85 M/mm3 (4.2-5.4); Red Cell Distribution Width 15.4 % (11.5-14.5); White Blood Count 9.7 K/mm3 (4.5-10.0)
[2020-12-06 05:58] LABS: Anion Gap 4 mmol/L (8-16); Blood Urea Nitrogen 19 mg/dL (7-17); Calcium 10.3 mg/dL (8.4-10.2); Carbon Dioxide 25 mmol/L (22-30); Chloride 97 mmol/L (98-107); Estimated CRCL calculation 40 ml/min; Estimated Glomerular Filt Rate > 60; Glucose 94 mg/dL (65-110); Potassium 3.8 mmol/L (3.4-5.0); Sodium 126 mmol/L (137-145)
[2020-12-06] MEDS: AMIODARONE 360 MG/D5W 200 ML 360 MG/200 ML BAG 16.67 MG IV CONT (06:02)
[2020-12-06] MEDS: ASPIRIN 81 MG ENTERIC TABLET PO (08:18)
[2020-12-06] MEDS: FAMOTIDINE 20 MG TABLET PO ×2 (08:18→20:50)
[2020-12-06] MEDS: DOCUSATE SODIUM 100 MG CAPSULE PO ×2 (08:18→17:11)
[2020-12-06] MEDS: FONDAPARINUX SODIUM 2.5 MG/0.5 ML SYRINGE SUB-Q (08:19)
[2020-12-06] MEDS: ONDANSETRON INJ 4 MG/2 ML VIAL IV PUSH ×2 (08:26→20:50)
--- NOTE | 2020-12-06 11:11 | P.PNIM_ITS ---
Progress Note: A&P Assessment and Plan (1) Closed intertrochanteric fracture of left hip: Qualifiers: Encounter type: initial encounter Fracture alignment: displaced Qualified Code(s): S72.142A - Displaced intertrochanteric fracture of left femur, initial encounter for closed fracture Code(s): S72.142A - Displaced intertrochanteric fracture of left femur, initial encounter for closed fracture Status: Acute Assessment and Plan: Secondary to mechanical fall at home. She is now s/p gamma juan insertion by Dr. Grayson on 12/03/2020. She tolerated the procedure well and her pain is well controlled. * Appreciate orthopedic surgery consultation. Wound care and DVT prophylaxis per Orthopedic surgery. * Analgesics available as needed * Continue PT/OT. Weightbearing status per Ortho. Following, recommendations appreciated * Remove Rangel catheter today. Proceed with voiding trial. (2) Atrial fibrillation with RVR: Code(s): I48.91 - Unspecified atrial fibrillation Status: Acute Assessment and Plan: Patient noted to become tachycardic yesterday and was symptomatic with lightheadedness. EKG demonstrated RVR with rate 150. * She was transferred to IMU on 12/05 and has been seen in consultation by Cardiology * Continue amiodarone drip * Appreciate cardiology consultation * Echo reviewed * Continue to monitor on telemetry (3) Acute hyponatremia: Code(s): E87.1 - Hypo-osmolality and hyponatremia Status: Acute Assessment and Plan: Sodium 122 on arrival. Slowly increased at appropriate rate up to 128. Down to 126 today. * Repeat sodium this afternoon to establish trend * IV fluids have been discontinued. * Will check urine electrolytes * Chlorthalidone on hold * Monitor BMP daily (4) COPD (chronic obstructive pulmonary disease): Qualifiers: COPD type: unspecified COPD Qualified Code(s): J44.9 - Chronic obstructive pulmonary disease, unspecified Code(s): J44.9 - Chronic obstructive pulmonary disease, unspecified Status: Chronic Assessment and Plan: In acute exacerbation. No wheezing. * Continue Spiriva (5) CAD (coronary artery disease): Qualifiers: Coronary Disease-Associated Artery/Lesion type: unspecified vessel or lesion type [place] vs. transplanted heart: [place] heart Associated angina: angina presence unspecified Qualified Code(s): I25.10 - Atherosclerotic heart disease of [place] coronary artery without angina pectoris Code(s): I25.10 - Atherosclerotic heart disease of [place] coronary artery without angina pectoris Status: Chronic Assessment and Plan: She has a history of cardiac stents and was followed by Cardiology, though had not followed up in approximately 4 years. * Continue aspirin * Plavix stopped. Per Cardiology recommendations * Continue atorvastatin * She will need to reestablish in follow-up with Cardiology. (6) Hypertension: Qualifiers: Hypertension type: essential hypertension Qualified Code(s): I10 - Essential (primary) hypertension Code(s): I10 - Essential (primary) hypertension Status: Chronic Assessment and Plan: Blood pressure reviewed and have been running on the lower end. Last BP 134/58 * Diuretic and antihypertensives held due to soft BP. Resume as tolerated * Monitor BP trends (7) Tobacco use: Code(s): Z72.0 - Tobacco use Status: Chronic Assessment and Plan: She smokes 1 pack
--- NOTE | 2020-12-06 11:11 | PM.IMPN ---
Progress Note: A&P Assessment and Plan (1) Closed intertrochanteric fracture of left hip: Qualifiers: Encounter type: initial encounter Fracture alignment: displaced Qualified Code(s): S72.142A - Displaced intertrochanteric fracture of left femur, initial encounter for closed fracture Code(s): S72.142A - Displaced intertrochanteric fracture of left femur, initial encounter for closed fracture Status: Acute Assessment and Plan: Secondary to mechanical fall at home. She is now s/p gamma juan insertion by Dr. Grayson on 12/03/2020. She tolerated the procedure well and her pain is well controlled. Appreciate orthopedic surgery consultation. Wound care and DVT prophylaxis per Orthopedic surgery. Analgesics available as needed Continue PT/OT. Weightbearing status per Ortho. Following, recommendations appreciated Remove Rangel catheter today. Proceed with voiding trial. (2) Atrial fibrillation with RVR: Code(s): I48.91 - Unspecified atrial fibrillation Status: Acute Assessment and Plan: Patient noted to become tachycardic yesterday and was symptomatic with lightheadedness. EKG demonstrated RVR with rate 150. She was transferred to IMU on 12/05 and has been seen in consultation by Cardiology Continue amiodarone kevin Appreciate cardiology consultation Echo reviewed Continue to monitor on telemetry (3) Acute hyponatremia: Code(s): E87.1 - Hypo-osmolality and hyponatremia Status: Acute Assessment and Plan: Sodium 122 on arrival. Slowly increased at appropriate rate up to 128. Down to 126 today. Repeat sodium this afternoon to establish trend IV fluids have been discontinued. Will check urine electrolytes Chlorthalidone on hold Monitor BMP daily (4) COPD (chronic obstructive pulmonary disease): Qualifiers: COPD type: unspecified COPD Qualified Code(s): J44.9 - Chronic obstructive pulmonary disease, unspecified Code(s): J44.9 - Chronic obstructive pulmonary disease, unspecified Status: Chronic Assessment and Plan: In acute exacerbation. No wheezing. Continue Spiriva (5) CAD (coronary artery disease): Qualifiers: Coronary Disease-Associated Artery/Lesion type: unspecified vessel or lesion type [place] vs. transplanted heart: [place] heart Associated angina: angina presence unspecified Qualified Code(s): I25.10 - Atherosclerotic heart disease of [place] coronary artery without angina pectoris Code(s): I25.10 - Atherosclerotic heart disease of [place] coronary artery without angina pectoris Status: Chronic Assessment and Plan: She has a history of cardiac stents and was followed by Cardiology, though had not followed up in approximately 4 years. Continue aspirin Plavix stopped. Per Cardiology recommendations Continue atorvastatin She will need to reestablish in follow-up with Cardiology. (6) Hypertension: Qualifiers: Hypertension type: essential hypertension Qualified Code(s): I10 - Essential (primary) hypertension Code(s): I10 - Essential (primary) hypertension Status: Chronic Assessment and Plan: Blood pressure reviewed and have been running on the lower end. Last BP 134/58 Diuretic and antihypertensives held due to soft BP. Resume as tolerated Monitor BP trends (7) Tobacco use: Code(s): Z72.0 - Tobacco use Status: Chronic Assessment and Plan: She smokes 1 pack per day and has no intentions of quitting smoking. Subjective Date/time seen: 12/06/20 11:12 Interval history: Date of service: 12/06/2020 Crista Mccloud is a 75-year-old female with a history of CAD, CHF, COPD, CVA, hypertension, tobacco abuse, and several other comorbidities who is seen in follow-up for left hip fracture and atrial fibrillation with rapid ventricular response. She is doing well today. She reports her left
--- NOTE | 2020-12-06 11:45 | PM.PNCARD ---
Progress Note: A&P Assessment and Plan (1) Atrial fibrillation with RVR: Code(s): I48.91 - Unspecified atrial fibrillation <NEVAEH Short - Last Filed: 12/06/20 14:47> Status: Acute <NEVAEH Short - Last Filed: 12/06/20 14:47> Assessment and Plan: New onset A fib with RVR noted yesterday after PT. She was placed on an amiodarone drip with hopes of converting her to sinus rhythm. She did in fact return to sinus rhythm and remains in normal sinus rhythm now. Will shift from IV amiodarone to 400mg amiodarone p.o. b.i.d. <NEVAEH Short - Last Filed: 12/06/20 14:47> (2) CAD (coronary artery disease): Qualifiers: Associated angina: angina presence unspecified Coronary Disease-Associated Artery/Lesion type: unspecified vessel or lesion type [place] vs. transplanted heart: [place] heart Qualified Code(s): I25.10 - Atherosclerotic heart disease of [place] coronary artery without angina pectoris <NEVAEH Short - Last Filed: 12/06/20 14:47> Code(s): I25.10 - Atherosclerotic heart disease of [place] coronary artery without angina pectoris <NEVAEH Short - Last Filed: 12/06/20 14:47> Status: Chronic <NEVAEH Short - Last Filed: 12/06/20 14:47> Assessment and Plan: NSTEMI in 2014 with stents placed in circumflex and RCA at that time. Continue ASA Continue statin Plavix has been stopped as PCI was 7 years ago <NEVAEH Short - Last Filed: 12/06/20 14:47> (3) CHF (congestive heart failure): Code(s): I50.9 - Heart failure, unspecified <NEVAEH Short - Last Filed: 12/06/20 14:47> Status: Acute <NEVAEH Short - Last Filed: 12/06/20 14:47> Assessment and Plan: Not exhibiting any clinical signs of CHF at this time. Echocardiogram from this hospitalization showed a hyperdynamic LV with EF >70%, mild-moderate aortic stenosis (peak velocity 255cm/s, mean gradient 15mmHg, aortic valve area of 1.4 cm2). Mild MR, mild TR. Moderate PHTN, estimated PAP 58 mmHg. <NEVAEH Short - Last Filed: 12/06/20 14:47> Additional Plan Attending addendum: I agree with the above documentation and plan of care as outlined. <Roberto Li MD - Last Filed: 12/06/20 16:15> Subjective Date/time seen: 12/06/20 12:15 <NEVAEH Short - Last Filed: 12/06/20 14:47> Interval history: 12/06/20 11:45 Cardiology follow up for Afib with RVR Date of service 12/06/2020: Feels well today. Does have complaint of pain in her hip. No chest pain, palpitations. Breathing is good. She did have some tachycardia associated with physical therapy this morning. <NEVAEH Short - Last Filed: 12/06/20 14:47> Review of Systems Constitutional: Constitutional: Reports no additional constitutional complaints <NEVAEH Short - Last Filed: 12/06/20 14:47> Eyes: Eyes: Reports no additional eye complaints <NEVAEH Short - Last Filed: 12/06/20 14:47> ENT: Reports system reviewed and no additional complaints, except as documented and Reports nasal congestion <NEVAEH Short - Last Filed: 12/06/20 14:47> Cardiovascular: Cardiovascular: Reports no additional cardiovascular complaints and Reports dyspnea on exertion <NEVAEH Short - Last Filed: 12/06/20 14:47> Respiratory: Respiratory: Reports dyspnea on exertion <NEVAEH Short - Last Filed: 12/06/20 14:47> Gastrointestinal: Gastrointestinal: Reports no additional gastrointestinal complaints <NEVAEH Short - Last Filed: 12/06/20 14:47> Musculoskeletal: Musculoskeletal: Reports back pain <NEVAEH Short - Last Filed: 12/06/20 14:47> Integumentary/Breasts: Skin/Breast: Reports system reviewed and no additional complaints, except as docu <NEVAEH Short - Last Filed: 12/06/20 14:47> Neurologic: Reports system reviewed and no addition
[2020-12-06] MEDS: polyethylene glycoL 3350 17 GM POWD.PACK PO (12:28)
[2020-12-06 13:15] LABS: Sodium 127 mmol/L (137-145)
[2020-12-06] MEDS: AMIODARONE HCL 200 MG TABLET 400 MG PO (17:11)
[2020-12-06] MEDS: ATORVASTATIN 20 MG TABLET BY MOUTH (20:50)
[2020-12-07] VITALS (11 sets, daily range): BP systolic 135–140; BP diastolic 43–80; PULSE 80–108; RESP 18–20; TEMP 36.4–36.6; O2SAT 99–100
[2020-12-07] MEDS: HYDROcodone/acetaminophen (*CRX) 7.5-325 MG TABLET 1 TAB PO ×2 (01:29→05:57)
[2020-12-07 05:26] LABS: Hematocrit 23.3 % (37.0-47.0); Hemoglobin 7.6 g/dL (12.0-15.0); Mean Corpuscular HGB Conc 32.6 g/dl (32-36); Mean Corpuscular Hemoglobin 28.1 pg (26-34); Mean Corpuscular Volume 86.3 fl (80-100); Mean Platelet Volume 9.2 fl (7.4-10.4); Platelet Count Result 238 k/mm3 (150-375); Red Cell Distribution Width 15.6 % (11.5-14.5); White Blood Count 7.8 K/mm3 (4.5-10.0)
[2020-12-07 05:43] LABS: Anion Gap 7 mmol/L (8-16); Blood Urea Nitrogen 19 mg/dL (7-17); Carbon Dioxide 28 mmol/L (22-30); Chloride 93 mmol/L (98-107); Estimated CRCL calculation 36 ml/min; Estimated Glomerular Filt Rate > 60; Glucose 97 mg/dL (65-110); Potassium 3.7 mmol/L (3.4-5.0); Sodium 128 mmol/L (137-145)
[2020-12-07] MEDS: AMIODARONE HCL 200 MG TABLET 400 MG PO (09:29)
[2020-12-07] MEDS: ASPIRIN 81 MG ENTERIC TABLET PO (09:30)
[2020-12-07] MEDS: FAMOTIDINE 20 MG TABLET PO (09:30)
[2020-12-07] MEDS: FONDAPARINUX SODIUM 2.5 MG/0.5 ML SYRINGE SUB-Q (09:30)
[2020-12-07] MEDS: polyethylene glycoL 3350 17 GM POWD.PACK PO (09:31)
[2020-12-07] MEDS: DOCUSATE SODIUM 100 MG CAPSULE PO (09:36)
[2020-12-07 12:16] LABS: Hematocrit 26.1 % (37.0-47.0); Hemoglobin 8.4 g/dL (12.0-15.0)
--- NOTE | 2020-12-07 13:12 | PCDIET ---
Nutrition Follow-Up Complete: Nutrition Diagnosis: Inadequate oral intake related to diet order as evidenced by NPO. Nutrition Goal: Patient to consume 75% of meals or greater on advanced diet. Goal in progress. Intakes have been 50% or below on regular diet which patient attributes to food served in facility. Does like Ensure Compact supplements which are being provided twice per day. Encouraged patient to order alternate food item if she does not care for an item. Last recorded weight is 47.7 kg. Recommend obtaining new weight. Bowel Motility: No documented BM. Patient denies discomfort and is taking Colace and Miralax. Labs Reviewed: RBC (2.70), Hgb (7.6), Hct (23.3), BUN (19), Na (128) Meds Noted: Momence, Pacerone, Lipitor, Colace, Pepcid, Miralax, Spiriva Additional Notes: Left hip with dressing. No documented pressure sores. Will continue to monitor with same goal. Nutrition Monitoring and Evaluation: Follow up in 5 days.
--- NOTE | 2020-12-07 13:34 | PM.DS ---
DS: Admitting Diagnosis Admitting Diagnosis Fall DS: Discharge Diagnosis Discharge Diagnosis (1) Closed intertrochanteric fracture of left hip: Qualifiers: Encounter type: initial encounter Fracture alignment: displaced Qualified Code(s): S72.142A - Displaced intertrochanteric fracture of left femur, initial encounter for closed fracture Code(s): S72.142A - Displaced intertrochanteric fracture of left femur, initial encounter for closed fracture Status: Acute Assessment and Plan: Secondary to mechanical fall at home. She underwent gamma juan insertion by Dr. Grayson on 12/03/2020. She tolerated the procedure well and pain was well controlled. Managed per Ortho. She will continue with arixtra for DVT prophylaxis and will follow up with Dr. Grayson in 6 weeks. Continue PT/OT at [facility] (2) Atrial fibrillation with RVR: Code(s): I48.91 - Unspecified atrial fibrillation Status: Acute Assessment and Plan: Patient noted to become tachycardic during hospitalization and was symptomatic with lightheadedness. EKG demonstrated RVR with rate 150. She was transferred to IMU on 12/05/20 and was seen in consultation by Cardiology. Started on amiodarone drip and sinus rhythm was restored. She will continue PO amiodarone 400 mg daily. Home metoprolol tartrate was decreased to 12.5 mg daily. Echo reviewed. Follow up with cardiology as an outpatient. (3) Acute hyponatremia: Code(s): E87.1 - Hypo-osmolality and hyponatremia Status: Acute Assessment and Plan: Sodium 122 on arrival. Slowly increased at appropriate rate with gentle IV fluids up to 128. Appears to have element of chronic hyponatremia, typically in the low 130s. Chlorthalidone was held and she will repeat BMP in 1 week to monitor sodium. (4) COPD (chronic obstructive pulmonary disease): Qualifiers: COPD type: unspecified COPD Qualified Code(s): J44.9 - Chronic obstructive pulmonary disease, unspecified Code(s): J44.9 - Chronic obstructive pulmonary disease, unspecified Status: Chronic Assessment and Plan: Not in acute exacerbation. No wheezing. Continue home Spiriva (5) CAD (coronary artery disease): Qualifiers: Coronary Disease-Associated Artery/Lesion type: unspecified vessel or lesion type [place] vs. transplanted heart: [place] heart Associated angina: angina presence unspecified Qualified Code(s): I25.10 - Atherosclerotic heart disease of [place] coronary artery without angina pectoris Code(s): I25.10 - Atherosclerotic heart disease of [place] coronary artery without angina pectoris Status: Chronic Assessment and Plan: She has a history of cardiac stents and was followed by Cardiology, though had not followed up in approximately 4 years. Continue aspirin. Plavix was stopped per cardiology recommendations. Continue home atorvastatin. She will be re-establishing care with cardiology and will follow up as an outpatient. (6) Hypertension: Qualifiers: Hypertension type: essential hypertension Qualified Code(s): I10 - Essential (primary) hypertension Code(s): I10 - Essential (primary) hypertension Status: Chronic Assessment and Plan: Blood pressure reviewed and in fact were running on the lower end. Lisinopril, chlorthalidone, and felodipine were held and BP were stable without these medications. Continue to hold and monitor BP at [facility]. Follow up with PCP (7) Tobacco use: Code(s): Z72.0 - Tobacco use Status: Chronic Assessment and Plan: She smokes 1 pack per day and has no intentions of quitting smoking. Regardless, I still discussed importance of smoking cessation with her. (8) Thoracic aortic aneurysm: Qualifiers: Presence of rupture: without rupture Qualified Code(s): I71.2 - Thoracic aortic aneurysm, without rupture Code(s): I71.2 - Thoracic aortic aneurysm, witho
[2020-12-07 15:37] LABS: EDCOVIDSCREEN Negative (Negative)
[2020-12-07] MEDS: ACETAMINOPHEN 325 MG TABLET 650 MG PO (16:07)
== END 2020-12-07 16:40 | DRG 481 ==
LOC: ANHED 13:14 → ANH2MED 13:18 → ANHIMU 12-06 07:39 → ANH2MED 12-09 14:00 → ANHIMU 12-09 14:00
PROVIDERS: Nurse Practitioner; Nurse Practitioner Adult Health; Orthopaedic Surgery; Physician Assistant; Admitting Provider Internal Medicine; Emergency Provider Emergency Medicine; PCP Family Medicine; Visit Provider Physician Assistant
PROC: 0QS734Z Reposition Left Upper Femur with Internal Fixation Device, Percutaneous Approach (ICD-10-PCS; CPT 27245; principal; 2020-12-03 08:00)
DX: S72.142A Displaced intertrochanteric fracture of left femur, initial encounter for closed fracture (principal); E87.1 Hypo-osmolality and hyponatremia; W18.30XA Fall on same level, unspecified, initial encounter; I48.91 Unspecified atrial fibrillation; I11.0 Hypertensive heart disease with heart failure; I50.9 Heart failure, unspecified; E87.6 Hypokalemia; I71.2 Thoracic aortic aneurysm, without rupture; I25.10 Atherosclerotic heart disease of native coronary artery without angina pectoris; J44.9 Chronic obstructive pulmonary disease, unspecified; F17.210 Nicotine dependence, cigarettes, uncomplicated; E78.5 Hyperlipidemia, unspecified; H40.9 Unspecified glaucoma; Z79.899 Other long term (current) drug therapy; Z86.73 Personal history of transient ischemic attack (TIA), and cerebral infarction without residual deficits; Z95.5 Presence of coronary angioplasty implant and graft
CPT/HCPCS: 36415; 70450; 71046; 73502; 80048; 80053; 81001; 83605; 83735; 83935; 84295; 84300; 84443; 84484; 85014; 85018; 85025; 85027; 85610; 85730; 87426; 93005; 93306; 94640; 96365; 96366; 96375; 97110; 97116; 97161; 97165; 97530; 97535; 99285; A9270; C1713; C9803; J0131; J0282; J0690; J1652; J2270; J2405; J2704; J3010; J3475; J3480; J7030; J7040; J7120

== ENCOUNTER 2021-04-05 17:36 | Inpatient (IN) | payer MEDICARE, SELFPAY ==
[2021-04-05] VITALS (9 sets, daily range): BP systolic 128–181; BP diastolic 59–73; PULSE 70–95; RESP 18–29; TEMP 37.1; O2SAT 70–96
--- NOTE | ~2021-04-05 | CT_ITS ---
EXAMINATION: CTA chest PE protocol DATE: 04/05/2021 21:02 INDICATION: Shortness of breath TECHNIQUE: Computed tomography angiography (CTA) of the chest was performed with 100 mL Omnipaque-350 intravenous contrast timed to evaluate the pulmonary arteries. Coronal maximum intensity projection 3D-reconstructions were created by the technologist. The dose-length product (DLP) was 156.97 mGy-cm. Automated exposure control and iterative reconstruction technique were employed. COMPARISON: None. FINDINGS: The pulmonary arteries are well-opacified. No pulmonary embolism is identified. There is se jaye emphysema. There are dependent airspace opacities with a lower lobe predominance. No pleural eff usion or pneumothorax is identified. Cardiomegaly is noted. There are no pathologically enlarged thor acic lymph nodes. There is a 1.4 cm cyst of the left hepatic lobe. There is a 3.6 cm fusiform aneurys m of the distal thoracic aorta. There is a 2.1 cm cyst of the right kidney. There is moderate thoraci c spondylosis. IMPRESSION: 1. No pulmonary embolism identified. 2. Severe emphysema. 3. Atelectasis of the lower lung zones. Reviewed, dictated and finalized at location F. MECHANIC
--- NOTE | ~2021-04-05 | XR_ITS ---
EXAMINATION: XR chest 1V portable EXAM DATE: 04/07/2021 17:06 INDICATION: Shortness of breath. TECHNIQUE: Portable AP frontal chest x-ray was obtained. Comparison is made to prior examination from 04/05/2021. FINDINGS: Abnormal reticulation, worsening of airspace disease at the lung bases, could be pneumonia and atelectasis but please clinically correlate. Small pleural effusions not excludable. Cardiac silh ouette has increased in size, is mildly enlarged. There is aortic arteriosclerosis. There is no pneum othorax suspected. Chronic emphysema and hyperinflation. The bones are osteopenic. There are bony de generative changes. IMPRESSION: 1. Worsening bibasilar airspace disease suspicious for pneumonia and edema. Reviewed, dictated and finalized at location A. INE RADIO OPERATOR
--- NOTE | ~2021-04-05 | XR_ITS ---
EXAMINATION: XR chest 1V portable EXAM DATE: 04/08/2021 14:31 INDICATION: dyspnea TECHNIQUE: Portable AP frontal chest x-ray was obtained. Comparison is made to prior examination from 04/07/2021. FINDINGS: Abnormal reticulation with bibasilar predominance, could be pneumonia and atelectasis but p lease clinically correlate. Small pleural effusions not excludable. Mild cardiomegaly, unchanged. The re is aortic arteriosclerosis. There is no pneumothorax suspected. Chronic emphysema and hyperinflati on. The bones are osteopenic. There are bony degenerative changes. IMPRESSION: Bibasilar airspace disease suspicious for pneumonia and atelectasis unchanged. Reviewed, dictated and finalized at location A. CTOR OF LOSS PREVENTION
--- NOTE | ~2021-04-05 | XR_ITS ---
EXAMINATION: XR chest 1V portable INDICATION: Shortness of breath TECHNIQUE: Portable AP chest at 1935 hours COMPARISON: 12/02/2020 FINDINGS: The lungs are hyperinflated. There are patchy opacities of the mid and lower lung zones. No pleural effusion or pneumothorax is identified. The cardiomediastinal silhouette is normal. IMPRESSION: 1. Airspace opacities of the mid and lower lung zones, consistent with atelectasis versus pneumonia. Reviewed, dictated and finalized at location F. DESIGNER STANDARD CELLS IMPRESSION: 1. Airspace opacities of the mid and lower lung zones, consistent with atelecta sis versus pneumonia.
--- NOTE | 2021-04-05 18:50 | ECG_ITS ---
Measurements Intervals [place] Rate: 81 P: 81 AR: 150 QRS: -20 QRSD: 87 T: 61 QT: 378 QTc: 441 Interpretive Statements SINUS RHYTH ATRIAL PREMATURE COMPLEX LEFT VENTRICULAR HYPERTROPHY AND ST-T CHANGE MINIMAL Q WAVES- ANTEROLAT/HIGH LAT LEADS BASELINE ARTIFACT- I, II, III, AVR, AVL, AVF, V1-V6 BORDERLINE ECG Electronically Signed On 04-05-2021 19:18:30 [employer]NET NETWORK [employer]IST by Leo Correia D.O.
[2021-04-05 19:13] LABS: Basophils Percent Auto 0.1 % (0.2-1.2); Hematocrit 48.1 % (37.0-47.0); Hemoglobin 15.9 g/dL (12.0-15.0); Immature Granulocyte Percent A 0.9 % (0-0.5); Immature Platelet Fraction Pct 8.4 % (0.9-11.2); Lymphocytes Absolute Auto 0.58 K/mm3 (0.9-3.2); Mean Corpuscular HGB Conc 33.1 g/dl (32-36); Mean Corpuscular Hemoglobin 28.2 pg (26-34); Mean Corpuscular Volume 85.3 fl (80-100); Monocytes Absolute Auto 0.3 K/mm3 (0.1-0.6); Monocytes Percent Auto 2.8 % (2.6-8.5); Neutrophils Absolute Auto 10.5 K/mm3 (1.3-6.7); Neutrophils Percent Auto 91.2 % (45.5-73.1); Platelet Count Result 129 k/mm3 (150-375); Red Blood Count 5.64 M/mm3 (4.2-5.4); Red Cell Distribution Width 15.4 % (11.5-14.5); White Blood Count 11.5 K/mm3 (4.5-10.0)
--- NOTE | 2021-04-05 19:16 | ED.WEAKNESS ---
HPI - Weakness General Chief complaint: Weakness Stated complaint: weakness/covid exposure Time Seen by Provider: 04/05/21 18:53 Source: patient and RN notes reviewed History of Present Illness HPI Narrative: Patient brought to the emergency room by a family member with general weakness, poor appetite for the last few days. Patient lives with a family tested positive for Covid. The patient and her family are not vaccinated for COVID. History of COPD, coronary artery disease, CHF, tobacco use, atrial fibrillation, hypertension. Patient was asked about living well, she requested DNR. Patient is awake, alert and oriented x4. Related Data Home Medications Medication Instructions Recorded Confirmed aspirin 81 mg tablet,delayed 81 mg PO DAILY 02/27/19 03/23/21 release Spiriva with HandiHaler 1 cap INHALATION DAILY 12/02/20 03/23/21 albuterol sulfate 90 mcg/actuation 2 inh INHALATION DAILY g 02/22/21 03/23/21 aerosol inhaler potassium chloride 20 mEq 20 meq PO DAILY 02/22/21 03/23/21 tablet,extended release Allergies Allergy/AdvReac Type Severity Reaction Status Date / Time No Known Allergies Allergy Verified 03/23/21 14:37 Review of Systems Review of Systems: CONSTITUTIONAL: Denies fever, chills, or sweats. EYES: Denies visual changes, redness, or discharge. ENT: Denies rhinorrhea, congestion, sore throat, or otalgia. CARDIOVASCULAR: Denies chest pain, palpitations, or edema. RESPIRATORY: Denies cough or dyspnea. GASTROINTESTINAL: Denies abdominal pain, nausea, vomiting, or diarrhea. GENITOURINARY: Denies dysuria or hematuria. SKIN: Denies rash or itching. MUSCULOSKELETAL: Denies back pain, joint pain, or myalgia. NEUROLOGIC: Denies headache, numbness, or weakness. PSYCHIATRIC: Denies anxiety or depression. [facility] Past Medical History Medical History Abdominal aortic aneurysm 2019 infrarenal 4.1 x 3.5 cm Anxiety Bilateral cataracts CAD (coronary artery disease) 3 cardiac stents COPD (chronic obstructive pulmonary disease) Hyperinflation on chest x-ray. No PFTs to confirm Depression Glaucoma Heart attack History of stroke 2013 Hx of myocardial infarction Hyperlipidemia Hypertension Thoracic aortic aneurysm 2019 4.1 x 3.6 cm TIA (transient ischemic attack) Tobacco use Currently smokes a pack cigarettes a day. No interest in smoking cessation Vitamin D deficiency Surgical History Surgical History H/O section 1970's, 1979's History of coronary artery stent placement (~2013) Three stents History of hip surgery 11/2020 - ORIF of left intertrochanteric fracture Family History Family History Mother Family history of heart disease in male family member before age 55 Acute myocardial infarction Family history of obesity Family history of arthritis Family history of cardiovascular disease Hypertension Diabetes mellitus Sibling Family history of malignant neoplasm Family history of obesity Family history of arthritis due to sepsis Father Family history of malignant neoplasm Family history of arthritis Sibling Cerebrovascular accident Family history of arthritis Family history of cardiovascular disease Sibling Family history of arthritis Daughter Breast cancer Social History Social History Social History: The patient lives with her son and [id number]. She gave this 6 children only 5 her living. Patient is still smoking a pack cigarettes a day. She denies any alcohol or illicit drugs. The patient does not have a durable power bankruptcy attorney for healthcare but she decided that she wants to be a full code. 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 The patient still continues to smoke approximately half a pack to a pack a cigarettes a day.
[2021-04-05] MEDS: ALBUTEROL SULFATE NEB 2.5 MG/0.5 ML INH 5 MG INHALATION (19:17)
[2021-04-05] MEDS: IPRATROPIUM BR 0.02% INH SOLN 0.5 MG/2.5 ML VIAL INHALATION (19:17)
[2021-04-05 19:20] LABS: Alanine Aminotransferase 127 U/L (4-35); Albumin Level 3.7 g/dL (3.5-5.1); Alkaline Phosphatase 83 U/L (38-126); Anion Gap 11 mmol/L (8-16); Aspartate Amino Transferase 224 U/L (14-36); Bilirubin,Total 0.6 mg/dL (0.2-1.3); Blood Urea Nitrogen 34 mg/dL (7-17); Calcium 10.8 mg/dL (8.4-10.2); Carbon Dioxide 28 mmol/L (22-30); Chloride 92 mmol/L (98-107); Estimated Glomerular Filt Rate 37; Glucose 106 mg/dL (65-110); Lactic Acid Reflex 1.4 mmol/L (0.7-2.1); Potassium 3.3 mmol/L (3.4-5.0); Sodium 131 mmol/L (137-145)
[2021-04-05] MEDS: methylPREDNISolone SOD SUCC 125 MG VIAL IV PUSH (19:20)
[2021-04-05 19:51] LABS: Alveolar/Arterial O2 Gradient 207.7 mmHg; Base Excess ABG 1.7 mEq/l (+/-2.0); Fractional Inspired Oxygen 60 %; HCO3 ABG 22.9 mEq/l (22.0-26.0); Oxygen Content ABG 22.7 %vol (16.0-22.0); Oxygen Saturation ABG 99.5 % (95.0-100.0); PCO2 ABG 27.9 mmHg (35.0-45.0); PO2 ABG 189.4 mmHg (80.0-100.0); PO2 FiO2 Ratio Arterial Blood 3.16 %; Total Hemoglobin 16.2 g/dL (12.0-18.0)
[2021-04-05 19:51] LABS: NT Pro B Type Natriuretic Pept 1410 pg/mL (5-100)
[2021-04-05 19:53] LABS: pH ABG 7.532 (7.350-7.450)
[2021-04-05 20:10] LABS: INR 0.9; Prothrombin Time 12.1 Seconds (11.1-14.7)
--- NOTE | 2021-04-05 20:55 | PC.NURSE ---
Pt to CT scan at this time.
--- NOTE | 2021-04-05 21:18 | PC.NURSE ---
Per DR Ana Maria NICOLE, place pt on 6 L NC O2.
[2021-04-05] MEDS: POTASSIUM CHLORIDE 20 MEQ TABLET 40 MEQ PO (21:32)
--- NOTE | 2021-04-05 22:24 | PM.IMHP ---
H&P: HPI History of Present Illness Date/Time: 04/05/21 22:24 Chief Complaint: Increasing weakness, decreased appetite Narrative: 75-year-old female with past medical history of COPD, chronic tobacco use, aortic valve stenosis and moderate pulmonary hypertension who was brought in the ER by family due to increasing weakness and decreased appetite for few days. The patient lives with a family members that her COVID positive. The patient had multiple negative tests throughout the week. The patient and her family members have not been vaccinated against COVID-19. She has been having a dry nonproductive cough for about 1 week. She denies having any known fevers or chills. She denies any arthralgias or myalgias beyond her baseline. She has not had any lower extremity swelling, orthopnea or paroxysmal nocturnal dyspnea. She denies any chest pain. She denies any loss of sense of taste or smell but reports that she has not eaten hardly anything in the last week week to tell if she has lost her sense of taste. She reports that she has not had a bowel movement in about 2 weeks. She denies a history of constipation her having prolonged periods without having a bowel movement. She denies any abdominal pain. She usually has nocturia and reports very little urine output during the day. She denies any hematuria. She does not use the patient was having shortness of breath and on arrival to the ER should found to be satting 70% on room air was placed on 15 L high-flow nasal cannula. Her oxygen saturations improved to the low 90s. ABG demonstrated respiratory alkalosis and PO2 of 182. Her COVID antigen test was positive. She reports that she quit smoking back in November when she broke her hip. She had elevated transaminases and mild acute on chronic renal insufficiency on admission labs. She also had mild hypokalemia and received oral potassium supplements in the ER. The patient's labs did demonstrate mild hypercalcemia which had been noted on previous labs. She did not have blood cultures drawn until after she had arrived on the medical floor. Review of Systems Review of Systems: 12 systems were reviewed with pertinent positives and negatives per HPI. Except as documented in the HPI, all other systems were reviewed and are negative. PENDING SALE TO [facility] Past Medical History Medical History (Updated 04/05/21 @ 22:37 by Maria Luz Scott DO) Abdominal aortic aneurysm 2019 infrarenal 4.1 x 3.5 cm Anxiety Bilateral cataracts CAD (coronary artery disease) 3 cardiac stents COPD (chronic obstructive pulmonary disease) Severe emphysema on CT scan. Patient has never had PFTs. Depression Glaucoma History of stroke (~2012) Left thalamic infarct Hx of myocardial infarction Hyperlipidemia Hypertension Moderate aortic valve stenosis Moderate pulmonary hypertension Noted on echocardiogram November 2020 with EF greater than 70% Moderate tricuspid regurgitation TIA (transient ischemic attack) Tobacco use Currently smokes a pack cigarettes a day. No interest in smoking cessation Vitamin D deficiency Surgical History Surgical History H/O section 1969's, 1979's History of coronary artery stent placement (~2013) Three stents History of hip surgery 11/2020 - ORIF of left intertrochanteric fracture Family History Family History Mother Family history of heart disease in male family member before age 55 Acute myocardial infarction Family history of obesity Family history of arthritis Family history of cardiovascular disease Hypertension Diabetes mellitus Sibling Family history of malignant neoplasm Family history of obesity Family history of arthritis due to sepsis Father Family history of malignant neoplasm Family history of arthritis Sibling Cerebrovascular accident Family history of arthritis Family history of cardiovas
--- NOTE | 2021-04-05 22:36 | PC.NURSE ---
Pt O2 sat 82% at this time. Bumped up to 8L NC. 91% O2 sat at this time.
[2021-04-06] VITALS (18 sets, daily range): BP systolic 135–145; BP diastolic 58; PULSE 65–88; RESP 14–24; TEMP 36.3–36.8; O2SAT 90–96; BMI 18.1
[2021-04-06] MEDS: SODIUM CHLORIDE 0.9% IV 1,000 ML 60 ML IV CONT ×2 (00:34→16:09)
[2021-04-06] MEDS: REMDESIVIR 200 MG/NS 250 ML 200 MG/250 ML BAG 250 MG IVPB (00:34)
[2021-04-06 00:46] LABS: Troponin I 0.117 ng/mL (0.000-0.034)
--- NOTE | 2021-04-06 01:22 | ADMGEN ---
This patient, Crista Mccloud, was admitted to [facility] Surg Room 316-02. Patient/family oriented to hospital policies and general routines including ID bracelet, bed and alarms, visiting hours, pain management, procedures, bathroom and other care routines, personal items, smoking policy, room service/diet, and visiting hours. Information on how to activate the Rapid Response Team has been discussed. Patient/Family are encouraged to report perceived risks to care and to ask questions if they do not understand what they are told or what they should do.
[2021-04-06 02:17] LABS: Troponin I 0.101 ng/mL (0.000-0.034)
[2021-04-06 08:00] LABS: Hematocrit 44.1 % (37.0-47.0); Hemoglobin 14.7 g/dL (12.0-15.0); Immature Platelet Fraction Pct 7.4 % (0.9-11.2); Mean Corpuscular HGB Conc 33.3 g/dl (32-36); Mean Corpuscular Hemoglobin 28.3 pg (26-34); Mean Platelet Volume 11.2 fl (7.4-10.4); Platelet Count Result 98 k/mm3 (150-375); Red Blood Count 5.19 M/mm3 (4.2-5.4); Red Cell Distribution Width 15.3 % (11.5-14.5); White Blood Count 11.6 K/mm3 (4.5-10.0)
[2021-04-06 08:01] LABS: INR 0.9; Prothrombin Time 12.3 Seconds (11.1-14.7)
[2021-04-06 08:04] LABS: D Dimer 2.15 ug/mL (<0.48)
[2021-04-06 08:06] LABS: Parathyroid Intact 94.5 pg/mL (7.5-53.5)
[2021-04-06 08:13] LABS: Alanine Aminotransferase 104 U/L (4-35); Albumin Level 2.9 g/dL (3.5-5.1); Alkaline Phosphatase 65 U/L (38-126); Anion Gap 9 mmol/L (8-16); Aspartate Amino Transferase 152 U/L (14-36); Bilirubin,Total 0.5 mg/dL (0.2-1.3); Blood Urea Nitrogen 31 mg/dL (7-17); Calcium 9.9 mg/dL (8.4-10.2); Carbon Dioxide 24 mmol/L (22-30); Chloride 97 mmol/L (98-107); Estimated CRCL calculation 23 ml/min; Estimated Glomerular Filt Rate 40; Glucose 122 mg/dL (65-110); Lactate Dehydrogenase 793 U/L (313-618); Potassium 3.6 mmol/L (3.4-5.0); Sodium 130 mmol/L (137-145)
[2021-04-06 08:20] LABS: CRP 19.9 mg/dL (<1.0)
[2021-04-06] MEDS: IPRATROPIUM BR 0.02% INH SOLN 0.5 MG/2.5 ML VIAL INHALATION ×4 (08:50→21:26)
[2021-04-06] MEDS: ALBUTEROL SULFATE NEB 2.5 MG/0.5 ML INH 5 MG INHALATION ×4 (08:55→21:26)
[2021-04-06] MEDS: BARICITINIB 2 MG TABLET PO (09:49)
[2021-04-06] MEDS: POTASSIUM CHLORIDE 20 MEQ TABLET.ER 40 MEQ PO ×2 (09:49→16:08)
[2021-04-06] MEDS: ASPIRIN 81 MG CHEWABLE TABLET PO (09:49)
[2021-04-06] MEDS: ENOXAPARIN 40 MG/0.4 ML SYRINGE SUB-Q (09:50)
--- NOTE | 2021-04-06 13:58 | PM.IMPN ---
Progress Note: A&P Assessment and Plan (1) Pneumonia due to COVID-19 virus: Code(s): U07.1 - COVID-19; J12.82 - Pneumonia due to coronavirus disease 2019 Status: Acute Assessment and Plan: -Unvaccinated COVID-19 -diagnose positive on at the gym and has done 04/05/2020 -symptom onset may have been a week prior to admission -continue supplemental oxygen to keep oxygen saturation % was on 15 L in the ED, down to 3 L by nasal cannula -started remdesivir, Decadron, baricitinib (2) Acute respiratory failure with hypoxia: Code(s): J96.01 - Acute respiratory failure with hypoxia Status: Acute Assessment and Plan: Has been added schedule nebulizer treatments as she has underlying emphysema (3) Acute hyponatremia: Code(s): E87.1 - Hypo-osmolality and hyponatremia Status: Acute Assessment and Plan: Will continue trending, 130 this morning which appears to be drawn baseline (4) Elevated liver enzymes: Code(s): R74.8 - Abnormal levels of other serum enzymes Status: Acute Assessment and Plan: Likely from infection, hypertension may shock liver (5) Elevated troponin: Code(s): R77.8 - Other specified abnormalities of plasma proteins Status: Acute Assessment and Plan: -chest pain likely secondary to COVID-19 (6) Acute kidney injury: Code(s): N17.9 - Acute kidney failure, unspecified Status: Acute Assessment and Plan: Creatinine elevated to 1.3, baseline 0.9, likely prerenal, will trend Additional Plan Diet: Regular DVT prophylaxis: Lovenox Code status: Do not resuscitate Disposition: Pending clinical course weaning oxygen Time Spent With Patient Time with patient: 15 - 25 minutes Subjective Date/time seen: 04/06/21 13:58 Patient seen examined. She has no new complaints today. Patient has been weaned down from 9 L to 3L oxygen via nasal cannula. Patient is on remdesivir and Decadron and baricitinib she was diagnosed 04/05/21. She denies fever, chills, nausea, vomiting, diarrhea, chest pain, shortness of breath. Review of Systems Review of Systems: All systems reviewed & are unremarkable except as noted in HPI and below Exam Narrative: - GENERAL: Pleasant frail elderly woman in no acute distress breathing comfortably on 3 L oxygen by nasal cannula. - EYES: EOMI. Anicteric. - HENT: Moist mucous membranes. No scleral icterus. - LUNGS: Clear to auscultation bilaterally apically, no wheezing. Bibasilar crackles. - CARDIOVASCULAR: Regular rate and rhythm. - ABDOMEN: Soft, non-tender and non-distended. No palpable masses. - EXTREMITIES: No edema. Peripheral pulses 2+. Non-tender. - NEUROLOGIC: No focal neurological deficits. CN II-XII grossly intact. - PSYCHIATRIC: Awake, Alert and oriented. Appropriate mood and affect. - SKIN: No rashes or lesions. Warm. - LYMPH: No cervical lymphadenopathy. Objective Data Vital Signs Vital Signs: Vital Signs - 24 hr 04/05/21 18:39 04/05/21 18:51 04/05/21 19:17 Temperature 37.1 C Pulse Rate 85 85 89 Respiratory Rate 24 H 26 H 18 Blood Pressure 148/73 H 181/71 H Pulse Oximetry 70 L 92 04/05/21 19:22 04/05/21 19:57 04/05/21 20:21 Temperature Pulse Rate 78 95 84 Respiratory Rate 20 29 H Blood Pressure 152/67 H Pulse Oximetry 96 04/05/21 21:19 04/05/21 22:16 04/05/21 22:36 Temperature Pulse Rate 78 70 77 Respiratory Rate 24 H 20 23 H Blood Pressure 169/66 H 128/59 L 146/64 H Pulse Oximetry 91 90 91 04/06/21 02:54 04/06/21 04:00 04/06/21 05:22 Temperature 36.4 C L Pulse Rate 77 65 68 Respiratory Rate 23 H 16 Blood Pressure 140/58 L Pulse Oximetry 91 96 04/06/21 08:00 04/06/21 08:55 04/06/21 09:05 Temperature Pulse Rate 66 82 69 Respiratory Rate 16 24 H 20 Blood Pressure Pulse Oximetry 96 95 95 Intake/Output Intake/Output: Intake & Output 04/03/21 04/04/21 04/05/21 04/06/21 23:59 23:59 23:59 23:59 Intake Total
[2021-04-06] MEDS: CLOPIDOGREL BISULFATE 75 MG TABLET PO (16:08)
[2021-04-06] MEDS: lisinopriL 20 MG TABLET 40 MG PO (16:09)
[2021-04-06] MEDS: AMIODARONE HCL 200 MG TABLET PO (16:09)
[2021-04-06] MEDS: CYANOCOBALAMIN 1,000 MCG TABLET 1000 MCG PO (16:09)
[2021-04-06] MEDS: REMDESIVIR 100 MG/NS 250 ML 100 MG/250 ML BAG 250 MG IVPB (21:09)
[2021-04-06] MEDS: METOPROLOL TARTRATE 12.5 MG TABLET PO (21:10)
[2021-04-07] VITALS (18 sets, daily range): BP systolic 120–142; BP diastolic 54–68; PULSE 64–83; RESP 12–21; TEMP 35.8–36.4; O2SAT 87–91
[2021-04-07] MEDS: IPRATROPIUM BR 0.02% INH SOLN 0.5 MG/2.5 ML VIAL INHALATION ×3 (01:49→19:54)
[2021-04-07] MEDS: ALBUTEROL SULFATE NEB 2.5 MG/0.5 ML INH 5 MG INHALATION ×3 (01:49→19:54)
[2021-04-07 06:37] LABS: Basophils Percent Auto 0.2 % (0.2-1.2); Hematocrit 45.5 % (37.0-47.0); Hemoglobin 14.9 g/dL (12.0-15.0); Immature Granulocyte Percent A 0.9 % (0-0.5); Lymphocytes Absolute Auto 0.54 K/mm3 (0.9-3.2); Mean Corpuscular HGB Conc 32.7 g/dl (32-36); Mean Corpuscular Hemoglobin 27.6 pg (26-34); Mean Corpuscular Volume 84.4 fl (80-100); Mean Platelet Volume 10.6 fl (7.4-10.4); Monocytes Absolute Auto 0.3 K/mm3 (0.1-0.6); Monocytes Percent Auto 2.9 % (2.6-8.5); Neutrophils Absolute Auto 9.9 K/mm3 (1.3-6.7); Platelet Count Result 142 k/mm3 (150-375); Red Blood Count 5.39 M/mm3 (4.2-5.4); Red Cell Distribution Width 15.5 % (11.5-14.5); White Blood Count 10.9 K/mm3 (4.5-10.0)
[2021-04-07 06:47] LABS: INR 1.1; Prothrombin Time 13.7 Seconds (11.1-14.7)
[2021-04-07 06:55] LABS: Alanine Aminotransferase 83 U/L (4-35); Alkaline Phosphatase 65 U/L (38-126); Anion Gap 7 mmol/L (8-16); Aspartate Amino Transferase 100 U/L (14-36); Bilirubin,Total 0.4 mg/dL (0.2-1.3); Blood Urea Nitrogen 32 mg/dL (7-17); Calcium 10.1 mg/dL (8.4-10.2); Carbon Dioxide 24 mmol/L (22-30); Chloride 104 mmol/L (98-107); Estimated CRCL calculation 25 ml/min; Estimated Glomerular Filt Rate 44; Glucose 117 mg/dL (65-110); Potassium 4.3 mmol/L (3.4-5.0); Sodium 135 mmol/L (137-145)
[2021-04-07] MEDS: SODIUM CHLORIDE 0.9% IV 1,000 ML 60 ML IV CONT (08:41)
[2021-04-07] MEDS: POTASSIUM CHLORIDE 20 MEQ TABLET.ER 40 MEQ PO ×2 (08:42→16:10)
[2021-04-07] MEDS: lisinopriL 20 MG TABLET 40 MG PO (08:42)
[2021-04-07] MEDS: FELODIPINE 5 MG TAB CR 10 MG PO (08:42)
[2021-04-07] MEDS: BARICITINIB 2 MG TABLET PO (08:42)
[2021-04-07] MEDS: ENOXAPARIN 40 MG/0.4 ML SYRINGE SUB-Q (08:42)
[2021-04-07] MEDS: METOPROLOL TARTRATE 12.5 MG TABLET PO ×2 (08:43→22:31)
[2021-04-07] MEDS: CLOPIDOGREL BISULFATE 75 MG TABLET PO (08:43)
[2021-04-07] MEDS: CYANOCOBALAMIN 1,000 MCG TABLET 1000 MCG PO (08:43)
[2021-04-07] MEDS: ASPIRIN 81 MG ENTERIC TABLET PO (08:44)
[2021-04-07] MEDS: AMIODARONE HCL 200 MG TABLET PO (08:44)
[2021-04-07 08:50] LABS: Burr Cells 2+ (NORMAL); Platelet Estimate Adequate (Adequate)
--- NOTE | 2021-04-07 13:54 | PM.IMPN ---
Progress Note: A&P Assessment and Plan (1) Acute kidney injury: Code(s): N17.9 - Acute kidney failure, unspecified Status: Acute (2) Pneumonia due to COVID-19 virus: Code(s): U07.1 - COVID-19; J12.82 - Pneumonia due to coronavirus disease 2019 Status: Acute (3) Acute respiratory failure with hypoxia: Code(s): J96.01 - Acute respiratory failure with hypoxia Status: Acute Additional Plan # COVID-19 pneumonia # acute hypoxic respiratory failure -unvaccinated, diagnosed 04/05/2021, symptom onset 1 week prior to admission -continue weaning oxygen, keep oxygen saturation greater 90%, currently on 4 L oxygen by nasal cannula (was on 15L on admission) -continue remdesivir, baricitinib, Decadron -now the oxygen requirements have come down will have her evaluated by PT and OT # hyponatremia -improved, sodium up to 135 # acute kidney injury -likely prerenal creatinine down to 1.2, baseline is 0.9 # transaminitis -be secondary infection, continue trending, elevated LFTs on admission not secondary to remdesivir or baricitinib # elevated troponin -likely secondary to infection just like elevated transaminitis Diet: Regular DVT prophylaxis: Lovenox Code status: Do not resuscitate Disposition: Pending clinical course weaning oxygen Time Spent With Patient Time with patient: 15 - 25 minutes Subjective Date/time seen: 04/07/21 13:54 Patient seen examined. She is doing well no new complaints. Will have PT and OT to evaluate and treat, now that she is stable on 4 L oxygen. Continue COVID-19 treatment as is. Creatinine improving down to 1.2. Patient denies fever, chills, nausea, vomiting, diarrhea, chest pain, shortness of breath. Review of Systems Review of Systems: All systems reviewed & are unremarkable except as noted in HPI and below Exam Narrative: - GENERAL: Pleasant frail elderly woman in no acute distress breathing comfortably on 4 L oxygen by nasal cannula. - EYES: EOMI. Anicteric. - HENT: Moist mucous membranes. No scleral icterus. - LUNGS: Clear to auscultation bilaterally apically, no wheezing. Bibasilar crackles. - CARDIOVASCULAR: Regular rate and rhythm. - ABDOMEN: Soft, non-tender and non-distended. No palpable masses. - EXTREMITIES: No edema. Peripheral pulses 2+. Non-tender. - NEUROLOGIC: No focal neurological deficits. CN II-XII grossly intact. - PSYCHIATRIC: Awake, Alert. Appropriate mood and flat affect. Slow to respond - SKIN: No rashes or lesions. Warm. - LYMPH: No cervical lymphadenopathy. Objective Data Vital Signs Vital Signs: Vital Signs - 24 hr 04/06/21 14:00 04/06/21 14:58 04/06/21 15:07 Temperature 36.3 C L Pulse Rate 70 70 74 Respiratory Rate 20 22 H 22 H Blood Pressure 135/58 L Pulse Oximetry 95 04/06/21 16:00 04/06/21 16:09 04/06/21 20:00 Temperature Pulse Rate 76 74 87 Respiratory Rate Blood Pressure Pulse Oximetry 90 04/06/21 20:18 04/06/21 21:10 04/06/21 21:26 Temperature 36.8 C Pulse Rate 77 76 78 Respiratory Rate 14 17 Blood Pressure 145/58 H Pulse Oximetry 91 04/06/21 21:27 04/06/21 21:32 04/07/21 00:00 Temperature Pulse Rate 88 88 73 Respiratory Rate 18 Blood Pressure Pulse Oximetry 96 04/07/21 01:49 04/07/21 01:59 04/07/21 03:29 Temperature 36.4 C L Pulse Rate 78 83 80 Respiratory Rate 15 17 12 Blood Pressure 136/68 Pulse Oximetry 91 04/07/21 04:00 04/07/21 08:00 04/07/21 08:43 Temperature Pulse Rate 81 82 82 Respiratory Rate 12 Blood Pressure Pulse Oximetry 91 04/07/21 08:44 04/07/21 12:00 Temperature 35.8 C L Pulse Rate 82 72 Respiratory Rate 21 H Blood Pressure 142/60 H Pulse Oximetry 90 Intake/Output Intake/Output: Intake & Output 04/04/21 04/05/21 04/06/21 04/07/21 23:59 23:59 23:59 23:59 Intake Total 2680 1360 Output Total 1100 Balance 1580 1360 Meds/Results Medications: Active Medications Generic Name
--- NOTE | 2021-04-07 16:24 | PC.NURSE ---
Pt 02 demand has increase from 3 L to 8 L HF NC this shift, IV fluids d/c'd at this time, and cxr ordered per MD Esquivel. Awaiting performance of cxr.
[2021-04-07] MEDS: FUROSEMIDE INJ 40 MG/4 ML VIAL 20 MG IV PUSH (18:49)
[2021-04-07] MEDS: REMDESIVIR 100 MG/NS 250 ML 100 MG/250 ML BAG 250 MG IVPB (21:48)
[2021-04-08] VITALS (17 sets, daily range): BP systolic 140–153; BP diastolic 56–81; PULSE 70–102; RESP 16–20; TEMP 36.4–36.7; O2SAT 90–95
[2021-04-08 07:34] LABS: Basophils Absolute Auto 0.1 K/mm3 (0.0-0.1); Basophils Percent Auto 0.3 % (0.2-1.2); Hematocrit 49.3 % (37.0-47.0); Hemoglobin 16.2 g/dL (12.0-15.0); Immature Granulocyte Percent A 1.2 % (0-0.5); Lymphocytes Absolute Auto 0.35 K/mm3 (0.9-3.2); Lymphocytes Percent Auto 2.1 % (18.3-44.2); Mean Corpuscular HGB Conc 32.9 g/dl (32-36); Mean Corpuscular Hemoglobin 27.6 pg (26-34); Mean Corpuscular Volume 83.8 fl (80-100); Mean Platelet Volume 10.5 fl (7.4-10.4); Monocytes Absolute Auto 0.4 K/mm3 (0.1-0.6); Monocytes Percent Auto 2.3 % (2.6-8.5); Neutrophils Percent Auto 94.1 % (45.5-73.1); Platelet Count Result 210 k/mm3 (150-375); Red Blood Count 5.88 M/mm3 (4.2-5.4); Red Cell Distribution Width 16.1 % (11.5-14.5)
[2021-04-08 07:42] LABS: Prothrombin Time 12.8 Seconds (11.1-14.7)
[2021-04-08 07:45] LABS: D Dimer 2.03 ug/mL (<0.48)
[2021-04-08 08:00] LABS: Albumin Level 3.3 g/dL (3.5-5.1)
[2021-04-08 08:13] LABS: Alanine Aminotransferase 69 U/L (4-35); Alkaline Phosphatase 70 U/L (38-126); Anion Gap 8 mmol/L (8-16); Aspartate Amino Transferase 70 U/L (14-36); Bilirubin,Total 0.7 mg/dL (0.2-1.3); Blood Urea Nitrogen 36 mg/dL (7-17); CRP 11.2 mg/dL (<1.0); Calcium 10.5 mg/dL (8.4-10.2); Carbon Dioxide 26 mmol/L (22-30); Chloride 103 mmol/L (98-107); Estimated CRCL calculation 30 ml/min; Estimated Glomerular Filt Rate 54; Glucose 112 mg/dL (65-110); Magnesium 1.4 mg/dL (1.6-2.3); Potassium 5.7 mmol/L (3.4-5.0); Sodium 137 mmol/L (137-145)
[2021-04-08] MEDS: ENOXAPARIN 40 MG/0.4 ML SYRINGE SUB-Q (10:19)
[2021-04-08] MEDS: lisinopriL 20 MG TABLET 40 MG PO (10:20)
[2021-04-08] MEDS: POTASSIUM CHLORIDE 20 MEQ TABLET.ER 40 MEQ PO (10:20)
[2021-04-08] MEDS: ASPIRIN 81 MG ENTERIC TABLET PO (10:20)
[2021-04-08] MEDS: FELODIPINE 5 MG TAB CR 10 MG PO (10:20)
[2021-04-08] MEDS: CYANOCOBALAMIN 1,000 MCG TABLET 1000 MCG PO (10:20)
[2021-04-08] MEDS: BARICITINIB 2 MG TABLET PO (10:20)
[2021-04-08] MEDS: CLOPIDOGREL BISULFATE 75 MG TABLET PO (10:20)
[2021-04-08] MEDS: AMIODARONE HCL 200 MG TABLET PO (10:21)
[2021-04-08] MEDS: METOPROLOL TARTRATE 12.5 MG TABLET PO ×2 (10:21→21:39)
--- NOTE | 2021-04-08 11:01 | PCRCNOTE ---
Window of time for administration has passed. See next scheduled administration.
--- NOTE | 2021-04-08 14:05 | PM.IMPN ---
Progress Note: A&P Assessment and Plan (1) Acute kidney injury: Code(s): N17.9 - Acute kidney failure, unspecified Status: Acute (2) Pneumonia due to COVID-19 virus: Code(s): U07.1 - COVID-19; J12.82 - Pneumonia due to coronavirus disease 2019 Status: Acute (3) Acute respiratory failure with hypoxia: Code(s): J96.01 - Acute respiratory failure with hypoxia Status: Acute (4) Elevated liver enzymes: Code(s): R74.8 - Abnormal levels of other serum enzymes Status: Acute (5) Acute hyponatremia: Code(s): E87.1 - Hypo-osmolality and hyponatremia Status: Acute Additional Plan # COVID-19 pneumonia # acute hypoxic respiratory failure -unvaccinated, diagnosed 04/05/2021, symptom onset 1 week prior to admission -continue weaning oxygen, keep oxygen saturation greater 90%, currently on 8 L oxygen by nasal cannula (was on 15L on admission) -continue remdesivir, baricitinib, Decadron -now the oxygen requirements have come down will have her evaluated by PT and OT -checking repeat chest x-ray,with worsening leukocytosis 10k to 17k -giving lasix 40mEq # hyperkalemia -potassium increased from 4.3-5.7, was on 40mEq BID from the ER, stopping supplement # hyponatremia, resolved -improved, sodium up to 137 # acute kidney injury, resolved -likely prerenal creatinine down to 1.0, baseline is 0.9 # transaminitis, improving -be secondary infection, continue trending, elevated LFTs on admission not secondary to remdesivir or baricitinib Pain at the wrong -likely secondary to infection just like elevated transaminitis Diet: Regular DVT prophylaxis: Lovenox Code status: Do not resuscitate Disposition: Pending clinical course weaning O2 Subjective Date/time seen: 04/08/21 14:05 Patient seen examined. She has no new complaints today. Creatinine improved to 1.00, potassium worsened to 5.7 from 4.3 (was given 40mEq BID from the ED, stopping now). Will give Lasix 40 mg IV. Worsening leukocytosis signficant jump to 17k, will quit repeat chest x-ray. She has no new complaints. Review of Systems Review of Systems: All systems reviewed & are unremarkable except as noted in HPI and below Exam Narrative: - GENERAL: Pleasant frail elderly woman in no acute distress breathing comfortably on 8 L oxygen by nasal cannula. - EYES: EOMI. Anicteric. - HENT: Moist mucous membranes. - LUNGS: Bibasilar crackles. No wheezing. non-labored respirations - CARDIOVASCULAR: Regular rate and rhythm. - ABDOMEN: Soft, non-tender and non-distended. No palpable masses. - EXTREMITIES: No edema. Peripheral pulses 2+. Non-tender. - NEUROLOGIC: No focal neurological deficits. CN II-XII grossly intact. - PSYCHIATRIC: Awake, Alert. Appropriate mood and flat affect. - SKIN: No rashes or lesions. Warm. - LYMPH: No cervical lymphadenopathy. Objective Data Vital Signs Vital Signs: Vital Signs - 24 hr 04/07/21 14:35 04/07/21 16:00 04/07/21 17:30 Temperature 36.4 C L Pulse Rate 79 81 Respiratory Rate 16 Blood Pressure 120/54 L Pulse Oximetry 90 87 L 04/07/21 19:53 04/07/21 20:00 04/07/21 20:15 Temperature 36.4 C L Pulse Rate 70 81 79 Respiratory Rate 18 18 Blood Pressure 140/54 L Pulse Oximetry 90 90 04/07/21 22:31 04/08/21 00:15 04/08/21 04:00 Temperature 36.5 C Pulse Rate 81 78 88 Respiratory Rate 16 Blood Pressure 140/56 L Pulse Oximetry 92 04/08/21 04:15 04/08/21 08:00 04/08/21 10:21 Temperature 36.7 C Pulse Rate 83 90 85 Respiratory Rate 20 Blood Pressure 149/62 H Pulse Oximetry 90 94 04/08/21 12:00 Temperature Pulse Rate 99 Respiratory Rate Blood Pressure Pulse Oximetry Intake/Output Intake/Output: Intake & Output 04/05/21 04/06/21 04/07/21 04/08/21 23:59 23:59 23:59 23:59 Intake Total 2680 1710 240 Output Total 1100 Balance 1580 1710 240 Meds/Results Medications: Active Medications Generic Name Dose Route S
[2021-04-08] MEDS: FUROSEMIDE INJ 40 MG/4 ML VIAL IV PUSH (14:53)
[2021-04-08] MEDS: ALBUTEROL SULFATE NEB 2.5 MG/0.5 ML INH 5 MG INHALATION ×2 (16:07→21:04)
[2021-04-08] MEDS: IPRATROPIUM BR 0.02% INH SOLN 0.5 MG/2.5 ML VIAL INHALATION ×2 (16:07→21:04)
[2021-04-08] MEDS: REMDESIVIR 100 MG/NS 250 ML 100 MG/250 ML BAG 250 MG IVPB (21:38)
[2021-04-09] VITALS (15 sets, daily range): BP systolic 141–188; BP diastolic 69–85; PULSE 60–103; RESP 16–24; TEMP 36.3–37.4; O2SAT 90–95
[2021-04-09] MEDS: ALBUTEROL SULFATE NEB 2.5 MG/0.5 ML INH 5 MG INHALATION ×3 (02:31→20:45)
[2021-04-09] MEDS: IPRATROPIUM BR 0.02% INH SOLN 0.5 MG/2.5 ML VIAL INHALATION ×3 (02:31→20:46)
[2021-04-09 07:58] LABS: Basophils Absolute Auto 0.1 K/mm3 (0.0-0.1); Basophils Percent Auto 0.3 % (0.2-1.2); Eosinophils Percent Auto 0.1 % (0-4.4); Hematocrit 49.3 % (37.0-47.0); Hemoglobin 16.1 g/dL (12.0-15.0); Immature Granulocyte Absolute 0.19 K/mm3 (0.00-0.031); Immature Granulocyte Percent A 1.1 % (0-0.5); Lymphocytes Absolute Auto 0.29 K/mm3 (0.9-3.2); Lymphocytes Percent Auto 1.6 % (18.3-44.2); Mean Corpuscular HGB Conc 32.7 g/dl (32-36); Mean Corpuscular Hemoglobin 27.5 pg (26-34); Mean Corpuscular Volume 84.1 fl (80-100); Mean Platelet Volume 10.4 fl (7.4-10.4); Monocytes Absolute Auto 0.4 K/mm3 (0.1-0.6); Monocytes Percent Auto 2.2 % (2.6-8.5); Neutrophils Absolute Auto 16.7 K/mm3 (1.3-6.7); Neutrophils Percent Auto 94.7 % (45.5-73.1); Platelet Count Result 191 k/mm3 (150-375); Red Blood Count 5.86 M/mm3 (4.2-5.4); Red Cell Distribution Width 16.6 % (11.5-14.5); White Blood Count 17.6 K/mm3 (4.5-10.0)
[2021-04-09 08:05] LABS: Alanine Aminotransferase 51 U/L (4-35); Albumin Level 3.2 g/dL (3.5-5.1); Alkaline Phosphatase 72 U/L (38-126); Anion Gap 9 mmol/L (8-16); Aspartate Amino Transferase 44 U/L (14-36); Bilirubin,Total 0.7 mg/dL (0.2-1.3); Blood Urea Nitrogen 41 mg/dL (7-17); Calcium 10.9 mg/dL (8.4-10.2); Carbon Dioxide 26 mmol/L (22-30); Chloride 105 mmol/L (98-107); Estimated CRCL calculation 20 ml/min; Estimated Glomerular Filt Rate 34; Glucose 126 mg/dL (65-110); Potassium 4.7 mmol/L (3.4-5.0); Sodium 140 mmol/L (137-145)
[2021-04-09] MEDS: FELODIPINE 5 MG TAB CR 10 MG PO (08:38)
[2021-04-09] MEDS: CYANOCOBALAMIN 1,000 MCG TABLET 1000 MCG PO (08:38)
[2021-04-09] MEDS: CLOPIDOGREL BISULFATE 75 MG TABLET PO (08:38)
[2021-04-09] MEDS: ENOXAPARIN 40 MG/0.4 ML SYRINGE SUB-Q (08:38)
[2021-04-09] MEDS: BARICITINIB 2 MG TABLET PO (08:38)
[2021-04-09] MEDS: AMIODARONE HCL 200 MG TABLET PO (08:39)
[2021-04-09] MEDS: ASPIRIN 81 MG ENTERIC TABLET PO (08:39)
[2021-04-09] MEDS: METOPROLOL TARTRATE 12.5 MG TABLET PO ×2 (08:39→20:58)
[2021-04-09 08:56] LABS: INR 1.1; Prothrombin Time 14.1 Seconds (11.1-14.7)
--- NOTE | 2021-04-09 10:31 | PC.NURSE ---
N.o NS 100 ml/hr r/t dehydration elevated BUN 41 and Cr 1.5, calicum 10.9
[2021-04-09] MEDS: SODIUM CHLORIDE 0.9% IV 1,000 ML 100 ML IV CONT (11:19)
--- NOTE | 2021-04-09 11:50 | PCRCNOTE ---
Past window of treatment time.
--- NOTE | 2021-04-09 14:59 | PM.IMPN ---
Progress Note: A&P Assessment and Plan (1) Acute kidney injury: Code(s): N17.9 - Acute kidney failure, unspecified Status: Acute (2) Pneumonia due to COVID-19 virus: Code(s): U07.1 - COVID-19; J12.82 - Pneumonia due to coronavirus disease 2019 Status: Acute (3) Acute respiratory failure with hypoxia: Code(s): J96.01 - Acute respiratory failure with hypoxia Status: Acute Additional Plan # COVID-19 pneumonia # acute hypoxic respiratory failure -unvaccinated, diagnosed 04/05/2021, symptom onset 1 week prior to admission -continue weaning oxygen, keep oxygen saturation greater 90%, currently on 6 L oxygen by nasal cannula (was on 15L on admission) -continue remdesivir, baricitinib, Decadron -now the oxygen requirements have come down will have her evaluated by PT and OT -checking repeat chest x-ray,with worsening leukocytosis 10k to 17k, chest x-ray is unchanged -after giving Lasix 40 mg IV yesterday, her creatinine worsened from 1.0-1.5 #poor PO intake -adding Ensure t.i.d. # hyperkalemia, resolved -potassium increased from 4.3-5.7, was on 40mEq BID from the ER, stopping supplement -potassium resolved to 4.7 after stopping supplement # hyponatremia, resolved -improved, sodium up to 140 # acute kidney injury -likely prerenal after diuretic given yesterday, creatinine from 1.0 up to 1.5 -giving IV fluids normal saline 75 cc an hour # transaminitis, improving -be secondary infection, continue trending, elevated LFTs on admission not secondary to remdesivir or baricitinib Diet: Regular DVT prophylaxis: Lovenox Code status: Do not resuscitate Disposition: Pending clinical course weaning O2 Subjective Date/time seen: 04/09/21 14:59 Patient seen examined. She has persistent leukocytosis at 17,000, now developing CHANO with creatinine up to 1.5 from 1.0, discussed with RN to start IV fluids for dehydration. It appears her p.o. intake is minimal. Patient responds yes and no to simple questions however cannot articulate concerns. Review of Systems Review of Systems: ROS unobtainable: Yes unobtainable due to medical condition Exam Narrative: - GENERAL: Pleasant frail elderly woman in no acute distress breathing comfortably on 6 L oxygen by nasal cannula. - EYES: EOMI. Anicteric. - HENT: Dry oral mucosa - LUNGS: Bibasilar crackles. No wheezing. non-labored respirations - CARDIOVASCULAR: Regular rate and rhythm. - ABDOMEN: Soft, non-tender and non-distended. No palpable masses. - EXTREMITIES: No edema. Peripheral pulses 2+. Non-tender. - NEUROLOGIC: No focal neurological deficits. CN II-XII grossly intact. - PSYCHIATRIC: Awake, Alert, disoriented. Appropriate mood and flat affect. - SKIN: No rashes or lesions. Warm. - LYMPH: No cervical lymphadenopathy. Objective Data Vital Signs Vital Signs: Vital Signs - 24 hr 04/08/21 15:21 04/08/21 16:00 04/08/21 16:07 Temperature 36.6 C Pulse Rate 98 Respiratory Rate 20 Blood Pressure 153/74 H Pulse Oximetry 94 95 91 04/08/21 16:08 04/08/21 16:21 04/08/21 20:00 Temperature 36.4 C L Pulse Rate 98 100 102 H Respiratory Rate 18 18 16 Blood Pressure 147/69 H Pulse Oximetry 90 04/08/21 20:10 04/08/21 20:40 04/08/21 20:50 Temperature Pulse Rate 102 H 70 70 Respiratory Rate 16 18 18 Blood Pressure Pulse Oximetry 92 04/08/21 21:39 04/08/21 23:57 04/09/21 00:00 Temperature 36.4 C Pulse Rate 100 102 H 97 Respiratory Rate 16 Blood Pressure 146/81 H Pulse Oximetry 92 04/09/21 02:35 04/09/21 02:45 04/09/21 04:00 Temperature 36.4 C Pulse Rate 78 78 97 Respiratory Rate 18 18 16 Blood Pressure 169/69 H Pulse Oximetry 92 04/09/21 08:00 04/09/21 08:39 04/09/21 11:53 Temperature 36.5 C Pulse Rate 98 98 90 Respiratory Rate 18 18 Blood Pressure 169/70 H Pulse Oximetry 90 90 04/09/21 12:00 04/09/21 12:04 Temperature 36.3 C L Pulse Rate 89 88 Respiratory Rate 24 H 18 Blood
--- NOTE | 2021-04-09 18:54 | PC.NURSE ---
oftened pt miralax for constipation per MD Esquivel request, pt refused, clinched lips together and refused miralax.
[2021-04-09] MEDS: REMDESIVIR 100 MG/NS 250 ML 100 MG/250 ML BAG 250 MG IVPB (21:01)
[2021-04-09] MEDS: SODIUM CHLORIDE 0.9% IV 1,000 ML 75 ML IV CONT (21:02)
[2021-04-10] VITALS (19 sets, daily range): BP systolic 128–158; BP diastolic 69–85; PULSE 68–110; RESP 16–22; TEMP 36.2–36.4; O2SAT 90–96
[2021-04-10] MEDS: IPRATROPIUM BR 0.02% INH SOLN 0.5 MG/2.5 ML VIAL INHALATION ×4 (02:35→20:26)
[2021-04-10] MEDS: ALBUTEROL SULFATE NEB 2.5 MG/0.5 ML INH 5 MG INHALATION ×4 (02:35→20:26)
[2021-04-10] MEDS: UMECLIDINIUM BROMIDE 62.5 MCG ELLIPTA 1 PUFF INHALATION (09:10)
--- NOTE | 2021-04-10 09:31 | PC.NURSE ---
MD Esquivel stated will speak with family regarding pt poor appeite and failure to thrive, pt continued to have poor appetite and non-complaints with medication this morning.
[2021-04-10] MEDS: CLOPIDOGREL BISULFATE 75 MG TABLET PO (09:47)
[2021-04-10] MEDS: CYANOCOBALAMIN 1,000 MCG TABLET 1000 MCG PO (09:47)
[2021-04-10] MEDS: ENOXAPARIN 40 MG/0.4 ML SYRINGE SUB-Q (09:48)
[2021-04-10] MEDS: FELODIPINE 5 MG TAB CR 10 MG PO (09:48)
[2021-04-10] MEDS: AMIODARONE HCL 200 MG TABLET PO (09:48)
[2021-04-10] MEDS: ASPIRIN 81 MG ENTERIC TABLET PO (09:48)
[2021-04-10] MEDS: BARICITINIB 2 MG TABLET PO (09:48)
[2021-04-10] MEDS: SODIUM CHLORIDE 0.9% IV 1,000 ML 75 ML IV CONT (09:49)
[2021-04-10] MEDS: METOPROLOL TARTRATE 12.5 MG TABLET PO (09:49)
[2021-04-10 09:50] LABS: Basophils Absolute Auto 0.1 K/mm3 (0.0-0.1); Basophils Percent Auto 0.5 % (0.2-1.2); Hematocrit 50.5 % (37.0-47.0); Hemoglobin 16.5 g/dL (12.0-15.0); Immature Granulocyte Absolute 0.41 K/mm3 (0.00-0.031); Immature Granulocyte Percent A 2.1 % (0-0.5); Lymphocytes Percent Auto 1.5 % (18.3-44.2); Mean Corpuscular HGB Conc 32.7 g/dl (32-36); Mean Corpuscular Hemoglobin 27.6 pg (26-34); Mean Corpuscular Volume 84.6 fl (80-100); Mean Platelet Volume 11.3 fl (7.4-10.4); Monocytes Absolute Auto 0.5 K/mm3 (0.1-0.6); Monocytes Percent Auto 2.6 % (2.6-8.5); Neutrophils Absolute Auto 18.4 K/mm3 (1.3-6.7); Neutrophils Percent Auto 93.3 % (45.5-73.1); Platelet Count Result 195 k/mm3 (150-375); Red Blood Count 5.97 M/mm3 (4.2-5.4); Red Cell Distribution Width 16.3 % (11.5-14.5); White Blood Count 19.7 K/mm3 (4.5-10.0)
--- NOTE | 2021-04-10 09:58 | PCOTNOTE ---
Per RN, patient less responsive - opening eyes, but not participating or following commands. RN states patient not appropriate today for therapy. Patient will be downgraded due to decreased ability to participate in OT. Will resume original 5-7 frequency if improved. Patient not seen.
[2021-04-10] MEDS: hydrALAZINE HCL 20 MG/ML VIAL 10 MG IV PUSH ×2 (09:59→16:55)
--- NOTE | 2021-04-10 10:03 | PC.NURSE ---
Difficulty with taking medication this morning, clinching mouth and non-compliant with nurse. Medication crushed, only small amount given this shift, IV hydralazine given r/t elevated bp. Appetite continues to be poor.
[2021-04-10 10:17] LABS: Alanine Aminotransferase 39 U/L (4-35); Albumin Level 2.9 g/dL (3.5-5.1); Alkaline Phosphatase 75 U/L (38-126); Anion Gap 11 mmol/L (8-16); Aspartate Amino Transferase 31 U/L (14-36); Bilirubin,Total 0.6 mg/dL (0.2-1.3); Blood Urea Nitrogen 46 mg/dL (7-17); Calcium 10.5 mg/dL (8.4-10.2); Carbon Dioxide 24 mmol/L (22-30); Chloride 111 mmol/L (98-107); Estimated CRCL calculation 19 ml/min; Estimated Glomerular Filt Rate 32; Glucose 109 mg/dL (65-110); Sodium 146 mmol/L (137-145)
[2021-04-10] MEDS: DEXTROSE 5%/0.45% SOD CHL 1,000 ML 75 ML IV CONT (11:24)
--- NOTE | 2021-04-10 11:28 | PCOTNOTE ---
Due to continued decreased participation, reducing frequency of Occupational Therapy from 5-7x/week to 2-3x/week.
--- NOTE | 2021-04-10 12:14 | PCNFU ---
Nutrition Follow-Up Complete: Inadequate oral intake related to COVID-19 pneumonia as evidenced by reported intake of 25% Goal: Meet nutritional needs Pt. is progressing towards goal. No new goal at this time. Pt current nutrition is a heart healthy diet. Last recorded weight is 43.7 kg. Recommend re-weighing prior to discharge. Bowel Motility: + BM 04/08/2021 Labs Reviewed: Hgb 16.5, Hct 50.5, Alb 2.9, Na 146, GFR 32, BUN 26, Cr 1.6 Meds Noted: Vitamin B-12, Plavix, Albuterol, Kcl tablet, Lovenox, Prinivil, Lopressor, Miralax Skin: No skin breakdown at this time. WNL. Additional Notes: Patient is ordered ensure compact TID with meals providing an additional 220 calories and 9 grams of protein to increase oral intake. She has a poor appetite now and is consuming 0% of meals as well as refusing several meals. Hyperkalemia and hyponatremia are resolved. She is on high flow nasal cannula. Depending on pt. and family wishes may consider advanced nutrition support if oral intake remains less than 50%. Will follow up with pt in 3 days.
--- NOTE | 2021-04-10 12:32 | PC.NURSE ---
MD Esquivel discussed pt decline with POA, family to plan a meeting discuss hospice, care companion Cristina updated. Pt continues to refuse medication and therapies. Poor appetite continues.
--- NOTE | 2021-04-10 13:43 | PC.NURSE ---
Pt found on 86% on 5 L per therapy, pt breathing excercises encourage to help increase o2 saturation, now pt on 9 L HF NC 90%.
--- NOTE | 2021-04-10 14:16 | PC.NURSE ---
GUMARO informed this nurse family decided on hospice care at home, MD Esquivel informed this nurse to consult [facility] hospice, care coordination informed.
--- NOTE | 2021-04-10 14:46 | PM.IMPN ---
Progress Note: A&P Assessment and Plan (1) Failure to thrive: Status: Acute (2) Acute kidney injury: Code(s): N17.9 - Acute kidney failure, unspecified Status: Acute (3) Pneumonia due to COVID-19 virus: Code(s): U07.1 - COVID-19; J12.82 - Pneumonia due to coronavirus disease 2018 Status: Acute (4) Acute respiratory failure with hypoxia: Code(s): J96.01 - Acute respiratory failure with hypoxia Status: Acute (5) 2019 novel coronavirus-infected pneumonia (NCIP): Code(s): U07.1 - COVID-19; J12.82 - Pneumonia due to coronavirus disease 2019 Status: Acute (6) Dementia: Code(s): F03.90 - Unspecified dementia without behavioral disturbance Status: Acute Additional Plan # COVID-19 pneumonia # acute hypoxic respiratory failure -unvaccinated, diagnosed 04/05/2021, symptom onset 1 week prior to admission -continue weaning oxygen, keep oxygen saturation greater 90%, currently on 5 L oxygen by nasal cannula (was on 15L on admission) -continue remdesivir, baricitinib, Decadron -oxygen requirements improving, down to 5 L, patient is not really participate in any rehab, not using sent to spirometer, likely dementia, with failure to thrive I discussed with family and they are opting for hospice # failure to thrive -adding Ensure t.i.d., minimal p.o. intake, now getting hypernatremic, started on D5 half-normal saline -likely has dementia, poor PO intake for over a month, even prior to COVID 19 infection # hyperkalemia, resolved -resolved after stopping potassium supplement # hyponatremia, resolved, now hypernatremia -now hypernatremia on NS, also not taking much free water. Switch to D5 half-normal # acute kidney injury, worsening -likely prerenal after diuretic given yesterday, creatinine from 1.0 up to 1.6 -giving IV fluids normal saline 75 cc an hour, changed to D5-1/2NS for hypernatremia # transaminitis -be secondary infection, continue trending, elevated LFTs on admission not secondary to remdesivir or baricitinib Diet: Regular DVT prophylaxis: Lovenox Code status: Do not resuscitate Disposition: Home hospice Subjective Date/time seen: 04/10/21 14:46 Patient seen examined. She is failing to thrive not taking p.o. intake. Discussed with family and it appears she has been failing to thrive over last couple months, worse now with COVID-19 infection. She has been weaned down to 5 L of oxygen. Discussed with family at this time because of her poor p.o. intake that we would have to talk about feeding tubes. Family had goals of care conversation and are familiar with and wanting hospice. Consulting [facility] to help arrange for home hospice. Patient is on 5 L oxygen so we should be able to manage hospice at home. In the meantime we have started her on D5 half-normal saline because of her poor p.o. intake. Family to sign up with hospice. Review of Systems Review of Systems: ROS unobtainable: Yes unobtainable due to mental status Exam Narrative: - GENERAL: Pleasant frail elderly woman in no acute distress breathing comfortably on 5 L oxygen by nasal cannula. - EYES: EOMI. Anicteric. - HENT: Dry oral mucosa - LUNGS: Bibasilar crackles. No wheezing. non-labored respirations - CARDIOVASCULAR: Regular rate and rhythm. - ABDOMEN: Soft, non-tender and non-distended. No palpable masses. - EXTREMITIES: No edema. Peripheral pulses 2+. Non-tender. - NEUROLOGIC: No focal neurological deficits. CN II-XII grossly intact. - PSYCHIATRIC: Awake, Alert, disoriented. Depressed mood and flat affect. - SKIN: No rashes or lesions. Warm. - LYMPH: No cervical lymphadenopathy. Objective Data Vital Signs Vital Signs: Vital Signs - 24 hr 04/09/21 16:00 04/09/21 20:00 04/09/21 20:46 Temperature 36.5 C 37.4 C Pulse Rate 100 95 89 Respiratory Rate 16 18 18 Blood Pressure 188/81 H 162/75 H Pulse Oximetry 95 95 04/09/21 20:47 04/09/21 20:53 04/09/21 23:56 Temperature 36.
--- NOTE | 2021-04-10 16:47 | PM.DS ---
DS: Admitting Diagnosis Discharge Date 04/10/2021 Admitting Diagnosis COVID-19 pneumonia DS: Discharge Diagnosis Discharge Diagnosis (1) Dementia: Code(s): F03.90 - Unspecified dementia without behavioral disturbance Status: Acute (2) Failure to thrive: Status: Acute (3) Acute kidney injury: Code(s): N17.9 - Acute kidney failure, unspecified Status: Acute (4) Pneumonia due to COVID-19 virus: Code(s): U07.1 - COVID-19; J12.82 - Pneumonia due to coronavirus disease 2018 Status: Acute (5) Acute respiratory failure with hypoxia: Code(s): J96.01 - Acute respiratory failure with hypoxia Status: Acute DS: Summary Hospital Course Reason for hospitalization: COVID-19 pneumonia acute hypoxic respiratory failure Hospital Course: Patient is a 75-year-old female with past medical history of COPD, chronic tobacco use, aortic valve stenosis, moderate pulmonary hypertension brought to the ED with complaints of weakness. She was diagnosed with COVID-19 pneumonia, oxygen requirements increased to 15 L and wean down to 5 L. her p.o. intake was very minimal and she started developing CHANO and hypernatremia. Patient only responded to simple questions with yes and no, unable to speak in sentences and have a conversation. I called and discussed with family patient's current condition and failure to thrive. She likely has an underlying dementia diagnosis. It appears patient has had weakness and decreased p.o. intake over the last month even prior to the COVID 19 diagnosis. When we discussed having tube feeds family decided to have family meeting. Family would like to pursue hospice measures at this time with the COVID setback being the final push after a year of patient declining. [facility] consulted and will be arranging for equipment this evening. At time of discharge patient is stable on 5 L of oxygen, will be discharged home with oxygen to follow-up with hospice agency for further management. Family understand and agree with plan. Status at Discharge Cognitive/behavioral status at discharge: Likely has dementia, likely baseline Functional status at discharge: bed bound Overall status at discharge: patient is not back to baseline Time Spent with Patient Time attestation: Total time spent providing and/or coordinating discharge services:35 Time spent: Greater than 30 minutes Exam Narrative: - GENERAL: Pleasant frail elderly woman in no acute distress breathing comfortably on 5 L oxygen by nasal cannula. - EYES: EOMI. Anicteric. - HENT: Dry oral mucosa - LUNGS: Bibasilar crackles. No wheezing. non-labored respirations - CARDIOVASCULAR: Regular rate and rhythm. - ABDOMEN: Soft, non-tender and non-distended. No palpable masses. - EXTREMITIES: No edema. Peripheral pulses 2+. Non-tender. - NEUROLOGIC: No focal neurological deficits. CN II-XII grossly intact. - PSYCHIATRIC: Awake, Alert, disoriented. Depressed mood and flat affect. - SKIN: No rashes or lesions. Warm. - LYMPH: No cervical lymphadenopathy. DS: Data Data Completed and Pending Labs on day of discharge: Labs from last 24 hours 04/10/21 04/10/21 08:57 08:57 WBC 19.7 H RBC 5.97 H Hgb 16.5 H Hct 50.5 H MCV 84.6 MCH 27.6 MCHC 32.7 RDW 16.3 H Plt Count 195 MPV 11.3 H Immature Gran % (Auto) 2.1 H Neut % (Auto) 93.3 H Lymph % (Auto) 1.5 L [place] % (Auto) 2.6 Eos % (Auto) 0.0 Baso % (Auto) 0.5 Lymph # (Auto) 0.30 L [place] # (Auto) 0.5 Eos # (Auto) 0.0 Baso # (Auto) 0.1 Abs Immat Gran (auto) 0.41 H Absolute Neuts (auto) 18.4 H Absolute Nucleated RBC 0.0 Nucleated RBC % 0.0 Sodium 146 H Potassium 4.0 Chloride 111 H Carbon Dioxide 24 Anion Gap 11 BUN 46 H Creatinine 1.60 H Estim Creat Clear Calc 19 Estimated GFR 32 L Glucose 109 Calcium 10.5 H Total Bilirubin 0.6 AST 31 ALT 39 H Alkaline Phosphatase 75 Total Protein 5.0 L [place]
--- NOTE | 2021-04-10 18:37 | PC.NURSE ---
Awaiting discharge to [facility], emt's to picker operator.
--- NOTE | 2021-04-10 20:30 | PCRCNOTE ---
pt pulled mask off during treatment and would not allow therapist to put nebulizer mask back on. pt is combative and dug finger nails into therapists hand when therapist tried to put mask back on face.
--- NOTE | 2021-04-10 22:29 | PC.NURSE ---
POA updated ETA for emt's now 6am.
[2021-04-11] VITALS: BP 146/83; PULSE 100; RESP 20; TEMP 36.4; O2SAT 91
--- NOTE | 2021-04-11 01:12 | PC.NURSE ---
0100 Patient awake in room. Responds to name, nods head to answer no when asked if any needs or in pain. Will continue to monitor.
[2021-04-11 04:00] VITALS: BP 139/90; PULSE 99; RESP 20; TEMP 36.2; O2SAT 96
[2021-04-11 07:12] LABS: Alanine Aminotransferase 27 U/L (4-35); Aspartate Amino Transferase 26 U/L (14-36); Estimated CRCL calculation 16 ml/min; Estimated Glomerular Filt Rate 26; Potassium 4.3 mmol/L (3.4-5.0)
[2021-04-11] MEDS: ALBUTEROL SULFATE NEB 2.5 MG/0.5 ML INH 5 MG INHALATION (08:03)
[2021-04-11] MEDS: IPRATROPIUM BR 0.02% INH SOLN 0.5 MG/2.5 ML VIAL INHALATION (08:03)
[2021-04-11 08:04] VITALS: PULSE 92; RESP 20; O2SAT 94
[2021-04-11 08:14] VITALS: PULSE 94; RESP 20
--- NOTE | 2021-04-11 08:15 | PCRCNOTE ---
patient unable to take DPI at this time
[2021-04-11 09:39] VITALS: PULSE 94
[2021-04-11] MEDS: METOPROLOL TARTRATE 12.5 MG TABLET PO (09:39)
[2021-04-11] MEDS: BARICITINIB 2 MG TABLET PO (09:39)
[2021-04-11] MEDS: FELODIPINE 5 MG TAB CR 10 MG PO (09:39)
[2021-04-11] MEDS: ENOXAPARIN 40 MG/0.4 ML SYRINGE SUB-Q (09:39)
[2021-04-11] MEDS: ASPIRIN 81 MG ENTERIC TABLET PO (09:39)
[2021-04-11] MEDS: AMIODARONE HCL 200 MG TABLET PO (09:39)
[2021-04-11] MEDS: CLOPIDOGREL BISULFATE 75 MG TABLET PO (09:39)
[2021-04-11] MEDS: CYANOCOBALAMIN 1,000 MCG TABLET 1000 MCG PO (09:39)
[2021-04-14 15:12] LABS: Parathyroid Hormone Related Pr 8 pg/mL (11-20)
== END 2021-04-11 10:05 | disposition hospice, home (50) | DRG 177 ==
LOC: ANHED 20:29 → ANH3MEDSUR 04-06 01:28
PROVIDERS: Student in an Organized Health Care Education/Training Program; Admitting Provider Internal Medicine; Emergency Provider Emergency Medicine; PCP Family Medicine; Visit Provider Internal Medicine
DX: U07.1 COVID-19 (principal); J96.01 Acute respiratory failure with hypoxia; J12.82 Pneumonia due to coronavirus disease 2019; N17.9 Acute kidney failure, unspecified; Z68.1 Body mass index [BMI] 19.9 or less, adult; J44.0 Chronic obstructive pulmonary disease with (acute) lower respiratory infection; I48.20 Chronic atrial fibrillation, unspecified; E87.1 Hypo-osmolality and hyponatremia; E87.6 Hypokalemia; F03.90 Unspecified dementia, unspecified severity, without behavioral disturbance, psychotic disturbance, mood disturbance, and anxiety; R62.7 Adult failure to thrive; I35.0 Nonrheumatic aortic (valve) stenosis; I25.10 Atherosclerotic heart disease of native coronary artery without angina pectoris; I11.0 Hypertensive heart disease with heart failure; I50.9 Heart failure, unspecified; Z66 Do not resuscitate; H40.9 Unspecified glaucoma; I71.4 Abdominal aortic aneurysm, without rupture; I71.2 Thoracic aortic aneurysm, without rupture; E78.5 Hyperlipidemia, unspecified; E55.9 Vitamin D deficiency, unspecified; F17.210 Nicotine dependence, cigarettes, uncomplicated; Z79.82 Long term (current) use of aspirin; Z95.5 Presence of coronary angioplasty implant and graft; I25.2 Old myocardial infarction; Z86.73 Personal history of transient ischemic attack (TIA), and cerebral infarction without residual deficits
CPT/HCPCS: 36415; 36600; 71045; 71275; 80053; 82565; 82728; 82805; 83519; 83605; 83615; 83735; 83880; 83970; 84132; 84450; 84460; 84484; 85025; 85027; 85055; 85380; 85610; 85730; 86140; 87040; 87426; 93005; 94640; 96374; 97110; 97163; 97165; 97530; 99285; A9270; C9803; J0360; J1100; J1650; J1940; J2930; J7030; Q9967